=== PATIENT | male | born 1975 | race Caucasian/White ===

== ENCOUNTER 2021-04-03 08:28 | Observation (INO) | payer MEDICAID, SELFPAY ==
[2021-04-03] VITALS (31 sets, daily range): BP systolic 145–230; BP diastolic 84–122; PULSE 61–89; RESP 12–26; TEMP 36.6–37.1; O2SAT 93–98; BMI 23.6
--- NOTE | 2021-04-03 | IR_ITS ---
APPROVED REPORT Patient Location: Inpatient Charge Account Identification Clerk: JESSIE Sanchez RT (R) PROCEDURES Selective coronary angiogram INDICATION Preoperative evaluation, Elevated troponin Informed consent was obtained prior to the procedure. COMPLICATIONS NONE Estimated Blood Loss: LESS THAN 10 ML TECHNIQUE One percent lidocaine used to anesthetize the right anterior aspect of the wrist. The right radial artery was accessed via the Seldinger technique. A 6 Armenian sheath was placed in the right radial artery. 2.5 mg of verapamil, 800 mcg of nitroglycerin, 1mg Lidocaine and 5000 U Heparin were given through the arterial sheath. A ClickN KIDSpa catheter was used to perform selective angiography. At the end of procedure the apparatus was removed the sheath was removed and hemostasis was achieved using TR banding patient was transferred to the postop holding in stable condition ANGIOGRAPHIC RESULTS The left main artery Normal The left anterior descending artery Normal The circumflex artery Dominant normal The right coronary artery Nondominant normal The DIOR ventriculogram reveals Not performed The left ventricular end-diastolic pressure Not measured IMPRESSION Normal coronary arteries PLAN 1. Patient is a low and acceptable risk from a cardiac standpoint to proceed with elective/urgent cholecystectomy 2. Patient would likely benefit from beta-blockers and cessation from recreational drugs 3. Risk factor modification Electronically signed by : Rex Crowell MD 04/03/2021 15:45:18
--- NOTE | 2021-04-03 08:25 | ECG_ITS ---
APPROVED REPORT Exam: Resting ECG HR:60 bpm ECG Measurements Heart Rate 60 AXES FL 143 P 64 QRSd 84 QRS 62 QT 424 T 68 QTc 425 Conclusion SINUS RHYTHM MINIMAL VOLTAGE CRITERIA FOR LVH, CONSIDER NORMAL VARIANT [MEETS CRITERIA IN ONE OF: R(aVL), S(V1), R(V5), R(V5/V6)+S(V1)] MODERATE ST DEPRESSION [0.05+ mV ST DEPRESSION] ABNORMAL ECG UNCONFIRMED REPORT Electronically signed by : Bennett Ackerman MD 04/04/2021 19:00:24
--- NOTE | 2021-04-03 08:34 | CT_ITS ---
FINAL REPORT CLINICAL HISTORY: erwin, vomit FINDINGS: Axial images of the head were obtained without contrast. Coronal reformatted images were also obtained.This study was performed with techniques to keep radiation doses as low as reasonably achievable (ALARA). Individualized dose reduction techniques using automated exposure control or adjustment of mA and/or kV according to the patient''s size were employed. There is no evidence of intracranial hemorrhage or mass. The ventricular size is within normal limits. There is no evidence of shift of the midline structures. There is no mass or mass effect. No abnormal extra axial fluid collection is identified. There is opacification of the left maxillary sinus. There is mucosal thickening of other sinuses. No skull abnormality is seen on the bone window images. IMPRESSION: No acute intracranial abnormality. Chronic sinusitis. Reviewed, Interpreted and Dictated by Ziyad Segundo III, MD Transcribed by DIONNA Gil Authenticated by Ziyad Segundo III, MD on 04/03/2021 09:42:[address] [facility]
[2021-04-03 08:48] LABS: Basophils # 0.1 K/mm3 (0-0.2); Basophils % 0.8 % (0.1-2.0); Eosinophils # 0.1 K/mm3 (0.0-0.4); Eosinophils % 0.4 % (0.1-12.0); Hematocrit 44.2 % (42.0-52.0); Hemoglobin 14.4 g/dL (14.1-18.0); Lymphocytes # 0.9 K/mm3 (0.7-4.5); Lymphocytes % 5.8 % (10-50); Mean Corpuscular HGB Conc 32.6 g/dL (31.8-35.4); Mean Corpuscular Hemoglobin 29.8 pg (27.0-31.2); Mean Corpuscular Volume 91.6 fl (80-94); Mean Platelet Volume 9.5 fl (7.4-10.4); Monocytes # 0.9 K/mm3 (0.1-1.0); Monocytes % 5.9 % (1.7-9.3); Neutrophils # 13.2 K/mm3 (1.8-7.8); Neutrophils % 87.1 % (37.0-80.0); Platelet Count 393 K/mm3 (142-424); Red Blood Count 4.83 M/mm3 (4.60-6.20); Red Cell Distribution Width 13.5 % (11.5-17.5); White Blood Count 15.2 K/mm3 (4.8-10.8)
--- NOTE | 2021-04-03 08:48 | HMH.EDGENADL ---
ED Disposition Clinical Impression: Chest pain Qualifiers: Chest pain type: unspecified Qualified Code(s): R07.9 - Chest pain, unspecified Gallstone Qualifiers: Cholecystitis presence: without cholecystitis Biliary obstruction: without biliary obstruction Qualified Code(s): K80.20 - Calculus of gallbladder without cholecystitis without obstruction Disposition: Admitted as Observation Condition on Discharge: Good - Critical Care Critical Care Time: No Attestation: On , the high probability of a clinically significant, sudden or life threatening deterioration of the following system(s) required my full and direct attention, intervention and personal management. The time I documented below is in addition to time spent performing reported procedures but includes the following listed in this critical care notation. Medical Decision Making - Medical Records Medical records reviewed: Yes: I reviewed the patient's medical records. - Jorge Inquiry Pt receiving controlled substance: No Vital Signs: 04/03/21 08:28 04/03/21 09:17 04/03/21 09:31 Temperature 98.3 F Temperature Source Oral Pulse Rate 70 64 Pulse Rate [Radial] 80 Respiratory Rate 26 H 18 18 Blood Pressure 179/85 H 207/88 H Blood Pressure [Right Arm] 204/118 H Blood Pressure Mean 116 127 Blood Pressure Mean [Right Arm] 146 Blood Pressure Position [Right Arm] Sitting 02 Sat by Pulse Oximetry 94 L 96 96 Oxygen Delivery Method Room Air 04/03/21 09:41 04/03/21 10:00 04/03/21 10:30 Temperature Temperature Source Pulse Rate 62 68 68 Pulse Rate [Radial] Respiratory Rate 18 18 18 Blood Pressure 175/89 H 192/84 H 192/103 H Blood Pressure [Right Arm] Blood Pressure Mean 117 120 132 Blood Pressure Mean [Right Arm] Blood Pressure Position [Right Arm] 02 Sat by Pulse Oximetry 96 96 96 Oxygen Delivery Method 04/03/21 10:53 04/03/21 11:01 04/03/21 11:47 Temperature Temperature Source Pulse Rate 68 68 Pulse Rate [Radial] Respiratory Rate 18 18 Blood Pressure 160/108 H 178/97 H 192/98 H Blood Pressure [Right Arm] Blood Pressure Mean 136 124 Blood Pressure Mean [Right Arm] Blood Pressure Position [Right Arm] 02 Sat by Pulse Oximetry 96 95 Oxygen Delivery Method - Lab Data Lab Results 04/03/21 08:28: WBC 15.2 H, RBC 4.83, Hgb 14.4, Hct 44.2, MCV 91.6, MCH 29.8, MCHC 32.6, RDW 13.5, Plt Count 393, MPV 9.5, Neut % (Auto) 87.1 H, Lymph % (Auto) 5.8 L, [place] % (Auto) 5.9, Eos % (Auto) 0.4, Baso % (Auto) 0.8, Neut # (Auto) 13.2 H, Lymph # (Auto) 0.9, [place] # (Auto) 0.9, Eos # (Auto) 0.1, Baso # (Auto) 0.1, Total Counted 100, Neutrophils % (Manual) 88 H, Lymphocytes % (Manual) 10, Monocytes % (Manual) 2, Platelet Estimate Normal, RBC Morphology Normal 04/03/21 08:28: Sodium 137, Potassium 4.0, Chloride 98, Carbon Dioxide 27, Anion Gap 16.0 H, BUN 10, Creatinine 0.60 L, Estimated Creat Clear 161, Estimated GFR 144, Est GFR ( Amer) 175, Glucose 152 H, Calcium 9.4, Total Bilirubin 1.0, AST 45, ALT 48, Alkaline Phosphatase 119, Troponin I 0.06 H, Total Protein 8.5 H, Albumin 4.8, Globulin 3.7 H, Albumin/Globulin Ratio 1.3, Lipase 32 04/03/21 09:25: SARS-CoV-2 (PCR) Not detected, Influenza A Untype (PCR) Not detected, Influenza Type B (PCR) Not detected 04/03/21 10:27: Troponin I 0.09 H 04/03/21 10:42: Urine Color Yellow, Urine Appearance Clear, Urine pH 8.0, Ur Specific [place] 1.015, Urine Protein 1+, Urine Glucose (UA) Negative, Urine Ketones Trace, Urine Blood Negative, Urine Nitrate Negative, Urine Bilirubin Negative, Urine Urobilinogen 0.2, Ur Leukocyte Esterase Negative, Urine RBC None, Urine WBC Occasional, Ur Squamous Epith Cells 3-5, Urine Bacteria None Result diagrams: 04/03/21 08:28 04/03/21 08:28 Orders (Tests/Meds): ED MEDICATIONS Discontinued Medications Generic Name Dose Route Start Last Admin Trade Name Freq PRN Reason Stop Dose Admin Acetaminophen 1,000 mg 04/03/21 0
--- NOTE | 2021-04-03 08:52 | XR_ITS ---
FINAL REPORT CLINICAL HISTORY: chest pain FINDINGS: A single portable view of the chest was obtained. The heart size and pulmonary vascularity are within normal limits. The mediastinum is within normal limits. No acute pulmonary abnormality is identified. The bony thorax is intact. IMPRESSION: No active cardiopulmonary disease. Reviewed, Interpreted and Dictated by Ziyad Segundo III, MD Transcribed by DIONNA Gil Authenticated by Ziyad Segundo III, MD on 04/03/2021 09:42:16 AM [facility]
[2021-04-03 08:54] LABS: Chloride 98 mmol/L (98-107); Sodium 137 mmol/L (136-145)
[2021-04-03 08:56] LABS: Alanine Aminotransferase 48 U/L (12-78); Aspartate Amino Transferase 45 U/L (17-59); Blood Urea Nitrogen 10 mg/dl (9-20); Creatinine Clearance Estimated 161 mL/min (50-200); Estimated Glomerular Filt Rate 144 ml/min (>60); GFR (African American) 175 ML/MIN (>60)
[2021-04-03 08:57] LABS: Albumin Level 4.8 g/dl (3.5-5.0); Albumin/Globulin Ratio 1.3 (1.1-1.8); Alkaline Phosphatase 119 U/L (38-126); Calcium 9.4 mg/dl (8.4-10.2); Carbon Dioxide 27 mmol/L (22.0-30.0); Globulin 3.7 g/dL (1.3-3.2); Glucose 152 mg/dl (74-100); Lipase 32 U/L (23-300); Total Protein,Serum 8.5 g/dl (6.3-8.2)
[2021-04-03 09:02] LABS: MANUAL DIFFERENTIAL MANUAL DIFFERENTIAL (MANUAL DIFF)
[2021-04-03 09:08] LABS: Troponin I 0.06 ng/ml (0.00-0.034)
[2021-04-03 09:27] LABS: Coronavirus 19, PCR Not Detected (NotDetected); Influenza A, PCR Not Detected (NotDetected); Influenza B, PCR Not Detected (NotDetected)
--- NOTE | 2021-04-03 09:32 | PC.NURSE ---
DR SHANKAR WANTS 2 HR [facility] CALLED
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
[2021-04-03 09:59] LABS: Lymphocytes % 10 % (10-50); Monocytes % 2 % (2-9); Neutrophils % 88 % (42-76); Platelet Estimate Normal; RBC Morphology Normal; Total Cells Counted 100
[2021-04-03 10:48] LABS: Microscopic, Urine URINE MICROSCOPIC (MICROSCOPIC)
[2021-04-03 10:59] LABS: Appearance,Urine CLEAR (Clear); Bilirubin,Urine Negative (Negative); Blood, Urine Negative (Negative); Color,Urine YELLOW (Yellow); Glucose,Urine (UA) Negative (Negative); Ketones,Urine TRACE (Negative); Leukocyte Esterase,Urine Negative (Negative); Nitrate,Urine Negative (Negative); Protein,Urine 1+ (Negative); Specific Gravity, Urine 1.015 (1.005-1.030); Urobilinogen,Urine 0.2 EU/dl (0.2)
--- NOTE | 2021-04-03 11:07 | US_ITS ---
FINAL REPORT CLINICAL HISTORY: abd pain, n/v, abn ct FINDINGS: Sonographic images of the right upper quadrant were obtained. The pancreas is partially obscured. The liver has increased echogenicity consistent with fatty infiltration. The gallbladder is distended with mild sludge. There is no evidence of biliary ductal dilatation.The common duct measures 2 mm. Limited images of the right kidney are unremarkable. IMPRESSION: Distended gallbladder with mild sludge. Fatty infiltrated liver. Reviewed, Interpreted and Dictated by Ziyad Segundo III, MD Transcribed by Elana Craven Authenticated by Ziyad Segundo III, MD on 04/03/2021 12:52:50 PM [facility]
[2021-04-03 11:19] LABS: WBC,Urine Occasional #/hpf (0-3)
[2021-04-03 11:26] LABS: Troponin I 0.09 ng/ml (0.00-0.034)
--- NOTE | 2021-04-03 11:41 | PC.NURSE ---
cardiology called, will call back
--- NOTE | 2021-04-03 11:49 | CA_ITS ---
APPROVED REPORT EXAM: Comprehensive 2D, Doppler, and color-flow Echocardiogram Electrician Ship: Citlalli Lugo, KEVIN, RVS Ht: 5 ft 10 in Wt: 165lbs BSA: 1.92 BP: 000/00 mmHg Indications: Abnormal ECG, Chest Pain, elevated troponin, Smoker 2D Dimensions Aortic Root 3.19 cm LA Volume 49.20 mL Left Atrium 2.76 cm LA Volume Index 25.60 mL/m2 (M/F) 16-34 LVOT 2.20 cm (M/F) 1.5-2.5 M-Mode Dimensions RVDd 2.21 cm (0.9-2.6) LA Diam 3.16 cm (1.9-4.0) LVDd 5.43 cm (3.5-5.7) Ao Diam 3.62 cm (2.0-3.7) LVDs 3.18 cm (3.5-5.7) IVSd 1.04 cm (0.6-1.1) PWd 0.93 cm (0.6-1.1) EF (Teich) 71.80% EPSs 0.36 cm FS 41.40% EDV (Teich) 143.10 mL TAPSE 2.29 (<1.7) ESV (Teich) 40.30 mL LV Diastology E Decel Time 303.00 (160-240 msec) E/A Ratio 1.07 MED E' 9.20 (< 7 cm/sec) MED A' 13.70 cm/s E'/MED E' Ratio 8.16 (>14) LAT E' 14.00 (<10 cm/sec) LAT A' 2.60 cm/s E/LAT E' Ratio 5.36 (>14) Aortic Valve LVOT Max 116.00 (70-110 cm/s) LVOT VTI 23.99 cm AoV Peak Kiel. 152.00 (50-130 cm/s) AO Peak GR. 9.20 mmHg AO Mean GR. 5.00 (<5 mmHg) AO VTI 34.44 (18-25 cm) GENE (VTI) 2.65 (2.5-4.5 cm2) Mitral Valve MV A Velocity 70.00 (40-130 cm/s) E/A Ratio 1.07 MV Decel. Time 303.00 (160-240 ms) Pulmonary Valve PV Peak Velocity 110.00 (50-150 cm/s) Tricuspid Valve TR P. Velocity 145.00 cm/s RAP Estimate 10.00 mmHg RVSP 18.40 mmHg Left Ventricle Left atrium normal size, left ventricle is normal size, there is no concentric left ventricular hypertrophy, visually estimated ejection fraction 55% with no regional wall motion abnormality, diastolic parameters are within normal range. Right Ventricle Right atrium and right ventricle are normal size and contractility. Aortic Valve Aortic valve is grossly normal, there is no aortic stenosis or aortic insufficiency. Mitral Valve Mitral valve is grossly normal, there is trace mitral regurgitation. Tricuspid Valve Tricuspid grossly normal, there is trace tricuspid regurgitation, tricuspid regurgitation jet velocity is inadequate for calculation of the right ventricular systolic pressure. Pulmonic Valve Pulmonic valve is poorly visualized. Great Vessels Aortic root is normal size. Inferior vena cava is normal size with normal inspiratory collapse. Pericardium No significant pericardial effusion noted. Conclusion 1. Normal left ventricular size, preserved left ventricular systolic function, visually estimated ejection fraction 55% with no regional wall motion abnormality, diastolic parameters are within normal range. 2. Trace mitral and tricuspid regurgitation. 3. No significant pericardial effusion noted. 4. Inferior vena cava is normal size with normal inspiratory collapse. Electronically signed by : Surya Palma MD 04/03/2021 21:07:54
--- NOTE | 2021-04-03 11:53 | PC.NURSE ---
[facility] cardi[facility] at bedside
--- NOTE | 2021-04-03 12:16 | PC.NURSE ---
DR. PEÑA AND ANETA PAGAN AT BEDSIDE.
--- NOTE | 2021-04-03 12:17 | PC.NURSE ---
DR. PEÑA ADVISES PT WILL BE GOING TO THE [facility]. MARY KAY GETTING READY TO PREP PATIENT AT THIS TIME. ANETA PAGAN ADVISES NO MEDICATIONS/ NO OTHER ORDERS AT THIS TIME.
--- NOTE | 2021-04-03 12:52 | HMH.CNCARD ---
History of Present Illness Consult date: 04/03/21 Requesting physician: Brady Milian Consult reason: chest pain Chief complaint: N, Vomiting, Abdominal pain, Chest pain Additional Medical History:: 1. Hypertension 2. Tobacco use, 1/2 to 1 pack/day for 20 years 3. Nausea, vomiting, abdominal pain, 04/03/[address] scan 04/03/2021 B. No evidence of PE or aortic dissection, CTA of the chest, 04/03/2021. Possible edema versus infiltrate. 4. Elevated troponins with abnormal EKG, April 03, 2021 History of present illness: 45-year-old white male who developed nausea, vomiting and abdominal pain after eating [place] yesterday about 5 PM. Patient continues to have some vomiting since then. He was seen in the emergency department for the symptoms and given a combination of medications for nausea vomiting and chest pain which included nitroglycerin. His symptoms have improved since then. His blood pressure was noted to be elevated on admission and after being given labetalol has improved to 145/77 mmHg. Patient's chest pain has resolved but his lab work included troponins which are elevated at 0.06 and 0.09 with abnormal EKG showing ST segment depression in the inferolateral leads. No old EKG for comparison. He is found to have gallstones on work-up in the ER. In light of his complaint of chest pain, abnormal EKG and elevated troponins we recommend proceeding with cardiac catheterization later today. We will hold on antiplatelet therapy in case surgery is needed for gallstones. Preliminary echocardiogram today shows preserved ejection fraction. [facility] History *Have you ever received a pneumonia vaccine?: No *Have you received a flu vaccine this season?: No - *Social History Smoking Status: Current every day smoker Alcohol Intake: former *Occupational Status:: employed *Travel in the last 8 weeks: Inside the [place] Family Hx:: Non-contributory Meds Home Medications Medication Instructions Recorded Confirmed Type No Known Home Medications 04/03/21 04/03/21 History Allergies Allergy/AdvReac Type Severity Reaction Status Date / Time meperidine [From Demerol] Allergy Verified 04/03/21 08:33 Exam Vital signs and Labs for Last 24 Hours: Temp Pulse Resp BP Pulse Ox 98.3 F 68 18 192/98 H 95 04/03/21 08:28 04/03/21 11:01 04/03/21 11:01 04/03/21 11:47 04/03/21 11:01 Laboratory Results - last 24 hr 04/03/21 08:28: WBC 15.2 H, RBC 4.83, Hgb 14.4, Hct 44.2, MCV 91.6, MCH 29.8, MCHC 32.6, RDW 13.5, Plt Count 393, MPV 9.5, Neut % (Auto) 87.1 H, Lymph % (Auto) 5.8 L, [place] % (Auto) 5.9, Eos % (Auto) 0.4, Baso % (Auto) 0.8, Neut # (Auto) 13.2 H, Lymph # (Auto) 0.9, [place] # (Auto) 0.9, Eos # (Auto) 0.1, Baso # (Auto) 0.1, Total Counted 100, Neutrophils % (Manual) 88 H, Lymphocytes % (Manual) 10, Monocytes % (Manual) 2, Platelet Estimate Normal, RBC Morphology Normal 04/03/21 08:28: Sodium 137, Potassium 4.0, Chloride 98, Carbon Dioxide 27, Anion Gap 16.0 H, BUN 10, Creatinine 0.60 L, Estimated Creat Clear 161, Estimated GFR 144, Est GFR ( Amer) 175, Glucose 152 H, Calcium 9.4, Total Bilirubin 1.0, AST 45, ALT 48, Alkaline Phosphatase 119, Troponin I 0.06 H, Total Protein 8.5 H, Albumin 4.8, Globulin 3.7 H, Albumin/Globulin Ratio 1.3, Lipase 32 04/03/21 09:25: SARS-CoV-2 (PCR) Not detected, Influenza A Untype (PCR) Not detected, Influenza Type B (PCR) Not detected 04/03/21 10:27: Troponin I 0.09 H 04/03/21 10:42: Urine Color Yellow, Urine Appearance Clear, Urine pH 8.0, Ur Specific [place] 1.015, Urine Protein 1+, Urine Glucose (UA) Negative, Urine Ketones Trace, Urine Blood Negative, Urine Nitrate Negative, Urine Bilirubin Negative, Urine Urobilinogen 0.2, Ur Leukocyte Esterase Negative, Urine RBC None, Urine WBC Occasional, Ur Squamous Epith Cells 3-5, Urine Bacteria None I & O for Last 24 hours: Intake & Output 04/01/21 04/02/21 04/03/21 04/04/21 11:59 11:59 11:59 11:59 Krystian
--- NOTE | 2021-04-03 13:00 | PC.NURSE ---
pt states he uses heroin daily, snorts, states he is afraid he is going to go thru withdrawal and worried about it. last used yesterday. informed md states there is nothing you can give for opiate withdrawal.
--- NOTE | 2021-04-03 13:35 | PC.NURSE ---
report called to floor
[2021-04-03 13:49] LABS: Troponin I 0.09 ng/ml (0.00-0.034)
--- NOTE | 2021-04-03 15:03 | HMH.HP ---
*Admission Date: 04/03/21 <Eneida Hess - 04/03/21 15:13> *Chief complaint: vomiting, nausea, abdominal pain <Eneida Hess - 04/03/21 15:13> *History of present illness: 45-year-old white male who developed nausea, vomiting and abdominal pain after eating cheese yesterday about 5 PM. Patient continues to have some vomiting since then. He was seen in the emergency department for the symptoms and given a combination of medications for nausea vomiting and chest pain which included nitroglycerin. His symptoms have improved since then. His blood pressure was noted to be elevated on admission and after being given labetalol has improved to 145/77 mmHg. Patient's chest pain has resolved but his lab work included troponins which are elevated at 0.06 and 0.09 with abnormal EKG showing ST segment depression in the inferolateral leads. No old EKG for comparison. He is found to have gallstones on work-up in the ER. In light of his complaint of chest pain, abnormal EKG and elevated troponins we recommend proceeding with cardiac catheterization later today. We will hold on antiplatelet therapy in case surgery is needed for gallstones. Preliminary echocardiogram today shows preserved ejection fraction. (above as per Paluo Miranda) Further as to above, the patient is a daily heroin user. He states he thought he was having dose withdrawal yesterday when he began vomiting multiple times. He began having pain in the epigastric area that was radiating up into his chest and around his back. He used heroin this morning but it did not help his symptoms. He continued to vomit and have horrible abdominal pain. His chest x-ray showed nothing acute. His chest CTA showed no evidence of PE. He did have mild pulmonary groundglass opacities favoring edema over pneumonia and a moderately distended gallbladder. His gallbladder ultrasound showed a mildly distended gallbladder with sludge and fatty infiltration. He was admitted and given Zofran but states he is still nauseated. He is getting ready to be taken down for a heart cath. His is requesting something for heroin withdrawal. <Eneida Hess - 04/03/21 15:13> [facility] History I have reviewed the patient's past medical history: Yes <Renato Hessa - 04/03/21 15:13> Medical History: Denies:: Diabetes Mellitus Type 1, Diabetes Mellitus Type 2, Internal Pacemaker <DeshawnEneida 04/03/21 15:13> *Have you ever received a pneumonia vaccine?: No <Eneida Hess 04/03/21 15:13> *Have you received a flu vaccine this season?: No <DeshawnEneida 04/03/21 15:13> Other Surgeries: No: Pacemaker <DeshawnEneida 04/03/21 15:13> Amputation: No <DeshawnEneida 04/03/21 15:13> Fractures: No <JamesdestineyEneida 04/03/21 15:13> - *Social History Smoking Status: Current every day smoker <DeshawnEenida 04/03/21 15:13> Tobacco Type: cigarettes <DeshawnEneida 04/03/21 15:13> # Packs/Day (cigarettes): 1 <DeshawnEneida 04/03/21 15:13> Alcohol Intake: never <Renato Hessa 04/03/21 15:13> Substance Use Type: heroin <DeshawnEneida - 04/03/21 15:13> Last Used Substance: hours (ago) <JamesdestineyEneida 04/03/21 15:13> *Occupational Status:: other <DeshawnEneida 04/03/21 15:13> Household Members: spouse <JamesdestineyEneida 04/03/21 15:13> *Travel in the last 8 weeks: None <DeshawnEneida 04/03/21 15:13> Family Hx:: Coronary Artery Disease, Heart Attack, Hypertension <DeshawnEneida 04/03/21 15:13> Review of Systems - Constitutional Reports body ache(s), Reports chills, Reports weakness, Denies fever(s) <Renato Hessa 04/03/21 15:13> - Eyes Denies blurry vision, Denies double vision <DeshawnEneida 04/03/21 15:13> - ENT Denies nasal congestion, Denies sore throat <Renato Hessa 04/03/21 15:13> - *Cardiovascular Reports chest pain, Reports shortness of breath <Renato Hessa 04/03/21 15:13> - *Respiratory Reports cough, Reports shortness of breath <Eneida Hess - 04/03/21 15:13> - *Gas
[2021-04-04] VITALS (26 sets, daily range): BP systolic 160–216; BP diastolic 92–119; PULSE 56–78; RESP 14–20; TEMP 36.5–37.2; O2SAT 93–99
--- NOTE | 2021-04-04 05:58 | PC.NURSE ---
pt has continued to be hypertensive this shift, has complained of abdominal pain t/o shift, has also complained of nausea and has vomited some this shift, PRN meds given, right radial cath site with dressing in place, soft to touch, HR 59-71, remains on room air with O2 sats 93-97%
[2021-04-04 06:56] LABS: Basophils % 0.2 % (0.1-2.0); Eosinophils % 0.2 % (0.1-12.0); Hematocrit 45.6 % (42.0-52.0); Hemoglobin 14.7 g/dL (14.1-18.0); Lymphocytes # 1.3 K/mm3 (0.7-4.5); Lymphocytes % 6.9 % (10-50); Mean Corpuscular HGB Conc 32.2 g/dL (31.8-35.4); Mean Corpuscular Hemoglobin 29.6 pg (27.0-31.2); Mean Corpuscular Volume 92.1 fl (80-94); Mean Platelet Volume 9.3 fl (7.4-10.4); Monocytes # 1.4 K/mm3 (0.1-1.0); Monocytes % 7.4 % (1.7-9.3); Neutrophils # 16.3 K/mm3 (1.8-7.8); Neutrophils % 85.4 % (37.0-80.0); Platelet Count 390 K/mm3 (142-424); Red Blood Count 4.96 M/mm3 (4.60-6.20); Red Cell Distribution Width 13.5 % (11.5-17.5); White Blood Count 19.1 K/mm3 (4.8-10.8)
[2021-04-04 06:58] LABS: Chloride 97 mmol/L (98-107); Sodium 131 mmol/L (136-145)
[2021-04-04 06:59] LABS: Potassium 3.6 mmoL/L (3.5-5.1)
[2021-04-04 07:01] LABS: Alanine Aminotransferase 36 U/L (12-78); Albumin/Globulin Ratio 1.3 (1.1-1.8); Alkaline Phosphatase 119 U/L (38-126); Anion Gap 12.6 mEq/L (5-15); Aspartate Amino Transferase 37 U/L (17-59); Bilirubin,Total 1.1 mg/dl (0.2-1.3); Blood Urea Nitrogen 10 mg/dl (9-20); Carbon Dioxide 25 mmol/L (22.0-30.0); Creatinine Clearance Estimated 161 mL/min (50-200); Estimated Glomerular Filt Rate 144 ml/min (>60); GFR (African American) 175 ML/MIN (>60)
[2021-04-04 07:02] LABS: Calcium 8.8 mg/dl (8.4-10.2); Glucose 153 mg/dl (74-100)
[2021-04-04 07:07] LABS: MANUAL DIFFERENTIAL MANUAL DIFFERENTIAL (MANUAL DIFF)
--- NOTE | 2021-04-04 07:21 | HMH.GSCON ---
*Admission Date: 04/03/21 *Reason for consult:: Distended gallbladder and biliary sludge *History of present illness: This is a 45-year-old gentleman seen in consultation for service Dr. Milian for evaluation regarding upper abdominal pain, distended gallbladder, and biliary sludge. No fevers. No jaundice. Significant nausea. Elevated troponin is noted on this admission. He is status post catheterization with normal coronaries noted. He has been cleared to undergo surgical intervention per the cardiology service. Review of Systems - Constitutional Denies chills - *Gastrointestinal Reports abdominal pain, Reports nausea - *Neurologic Reports headache(s), Reports weakness [facility] History Medical History: Denies:: Diabetes Mellitus Type 1, Diabetes Mellitus Type 2, Internal Pacemaker *Have you ever received a pneumonia vaccine?: No *Have you received a flu vaccine this season?: No Other Surgeries: No: Pacemaker Amputation: No Fractures: No - *Social History Smoking Status: Current every day smoker Tobacco Type: cigarettes # Packs/Day (cigarettes): 1 Alcohol Intake: never Substance Use Type: heroin Last Used Substance: hours (ago) *Occupational Status:: other Household Members: spouse *Travel in the last 8 weeks: None Family Hx:: Coronary Artery Disease, Heart Attack, Hypertension Meds Home Medications Medication Instructions Recorded Confirmed Type No Known Home Medications 04/03/21 04/03/21 History Allergies Allergy/AdvReac Type Severity Reaction Status Date / Time buprenorphine [From Suboxone] Allergy Verified 04/03/21 14:33 meperidine [From Demerol] Allergy Verified 04/03/21 08:33 naloxone [From Suboxone] Allergy Verified 04/03/21 14:33 Exam Vital signs and Labs for Last 24 Hours: Temp Pulse Resp BP Pulse Ox 97.7 F 60 16 193/99 H 93 L 04/04/21 04:00 04/04/21 06:00 04/04/21 04:00 04/04/21 06:00 04/04/21 04:00 Laboratory Results - last 24 hr 04/03/21 08:28: WBC 15.2 H, RBC 4.83, Hgb 14.4, Hct 44.2, MCV 91.6, MCH 29.8, MCHC 32.6, RDW 13.5, Plt Count 393, MPV 9.5, Neut % (Auto) 87.1 H, Lymph % (Auto) 5.8 L, [place] % (Auto) 5.9, Eos % (Auto) 0.4, Baso % (Auto) 0.8, Neut # (Auto) 13.2 H, Lymph # (Auto) 0.9, [place] # (Auto) 0.9, Eos # (Auto) 0.1, Baso # (Auto) 0.1, Total Counted 100, Neutrophils % (Manual) 88 H, Lymphocytes % (Manual) 10, Monocytes % (Manual) 2, Platelet Estimate Normal, RBC Morphology Normal 04/03/21 08:28: Sodium 137, Potassium 4.0, Chloride 98, Carbon Dioxide 27, Anion Gap 16.0 H, BUN 10, Creatinine 0.60 L, Estimated Creat Clear 161, Estimated GFR 144, Est GFR ( Amer) 175, Glucose 152 H, Calcium 9.4, Total Bilirubin 1.0, AST 45, ALT 48, Alkaline Phosphatase 119, Troponin I 0.06 H, Total Protein 8.5 H, Albumin 4.8, Globulin 3.7 H, Albumin/Globulin Ratio 1.3, Lipase 32 04/03/21 09:25: SARS-CoV-2 (PCR) Not detected, Influenza A Untype (PCR) Not detected, Influenza Type B (PCR) Not detected 04/03/21 10:27: Troponin I 0.09 H 04/03/21 10:42: Urine Color Yellow, Urine Appearance Clear, Urine pH 8.0, Ur Specific [place] 1.015, Urine Protein 1+, Urine Glucose (UA) Negative, Urine Ketones Trace, Urine Blood Negative, Urine Nitrate Negative, Urine Bilirubin Negative, Urine Urobilinogen 0.2, Ur Leukocyte Esterase Negative, Urine RBC None, Urine WBC Occasional, Ur Squamous Epith Cells 3-5, Urine Bacteria None 04/03/21 12:51: Troponin I 0.09 H 04/04/21 06:29: WBC 19.1 H D, RBC 4.96, Hgb 14.7, Hct 45.6, MCV 92.1, MCH 29.6, MCHC 32.2, RDW 13.5, Plt Count 390, MPV 9.3, Neut % (Auto) 85.4 H, Lymph % (Auto) 6.9 L, [place] % (Auto) 7.4, Eos % (Auto) 0.2, Baso % (Auto) 0.2, Neut # (Auto) 16.3 H, Lymph # (Auto) 1.3, [place] # (Auto) 1.4 H, Eos # (Auto) 0.0, Baso # (Auto) 0.0 04/04/21 06:29: Sodium 131 L, Potassium 3.6, Chloride 97 L, Carbon Dioxide 25, Anion Gap 12.6, BUN 10, Creatinine 0.60 L, Estimated Creat Clear 161, Estimated GFR 144, Est GFR ( Amer) 175, Glucose 153 H, Calcium 8.8, Total Bili
--- NOTE | 2021-04-04 07:29 | HMH.PHAVTE ---
[facility] Pharmacy VTE Monitoring - Patient Demographics Admission date: 04/03/21 Report Date: 04/04/21 Time: 07:29 Allergies/Adverse Reactions: Patient Allergies buprenorphine [From Suboxone] Allergy (Verified 04/03/21 14:33) meperidine [From Demerol] Allergy (Verified 04/03/21 08:33) naloxone [From Suboxone] Allergy (Verified 04/03/21 14:33) Height: 1.78 m Weight: 74.843 kg Patient Problems: Current Active Problems Chest pain (Acute) Gallstone (Acute) Smoker (Acute) Elevated blood pressure reading (Acute) Elevated troponin (Acute) Abnormal EKG (Acute) Drug abuse and dependence (Acute) Heroin use (Acute) Abdominal pain (Acute) Vomiting (Acute) Biliary sludge (Acute) Abnormal gallbladder ultrasound (Acute) - VTE Risk Labs: VTE Related Lab Results Hgb 14.7 g/dL (14.1-18.0) 04/04/21 06:29 Hct 45.6 % (42.0-52.0) 04/04/21 06:29 Plt Count 390 K/mm3 (142-424) 04/04/21 06:29 BUN 10 mg/dl (9-20) 04/04/21 06:29 Creatinine 0.60 mg/dl (0.66-1.25) L 04/04/21 06:29 Estimated Creat Clear 161 mL/min (50-200) 04/04/21 06:29 - Prophylaxis VTE Prophylaxis Ordered?: Yes Types of VTE Prophylaxis: TEDS Knee High Location of Applied Device: Bilateral Lower Extremeties
[2021-04-04 08:18] LABS: Lymphocytes % 9 % (10-50); Monocytes % 4 % (2-9); Neutrophils % 87 % (42-76); Platelet Estimate Normal; RBC Morphology Normal; Total Cells Counted 100
--- NOTE | 2021-04-04 08:31 | HMH.PNCARD ---
Subjective Date: 04/04/21 Time: 08:32 Principal diagnosis: Abdominal pain Interval history: 45-year-old white male lying in bed in no acute distress. He relates the plan for gallbladder removal today. Blood pressure still remains elevated overnight. Exam Vital signs and Labs for Last 24 Hours: Temp Pulse Resp BP Pulse Ox 97.7 F 60 16 193/99 H 93 L 04/04/21 04:00 04/04/21 06:00 04/04/21 04:00 04/04/21 06:00 04/04/21 04:00 Laboratory Results - last 24 hr 04/03/21 08:28: WBC 15.2 H, RBC 4.83, Hgb 14.4, Hct 44.2, MCV 91.6, MCH 29.8, MCHC 32.6, RDW 13.5, Plt Count 393, MPV 9.5, Neut % (Auto) 87.1 H, Lymph % (Auto) 5.8 L, [place] % (Auto) 5.9, Eos % (Auto) 0.4, Baso % (Auto) 0.8, Neut # (Auto) 13.2 H, Lymph # (Auto) 0.9, [place] # (Auto) 0.9, Eos # (Auto) 0.1, Baso # (Auto) 0.1, Total Counted 100, Neutrophils % (Manual) 88 H, Lymphocytes % (Manual) 10, Monocytes % (Manual) 2, Platelet Estimate Normal, RBC Morphology Normal 04/03/21 08:28: Sodium 137, Potassium 4.0, Chloride 98, Carbon Dioxide 27, Anion Gap 16.0 H, BUN 10, Creatinine 0.60 L, Estimated Creat Clear 161, Estimated GFR 144, Est GFR ( Amer) 175, Glucose 152 H, Calcium 9.4, Total Bilirubin 1.0, AST 45, ALT 48, Alkaline Phosphatase 119, Troponin I 0.06 H, Total Protein 8.5 H, Albumin 4.8, Globulin 3.7 H, Albumin/Globulin Ratio 1.3, Lipase 32 04/03/21 09:25: SARS-CoV-2 (PCR) Not detected, Influenza A Untype (PCR) Not detected, Influenza Type B (PCR) Not detected 04/03/21 10:27: Troponin I 0.09 H 04/03/21 10:42: Urine Color Yellow, Urine Appearance Clear, Urine pH 8.0, Ur Specific [place] 1.015, Urine Protein 1+, Urine Glucose (UA) Negative, Urine Ketones Trace, Urine Blood Negative, Urine Nitrate Negative, Urine Bilirubin Negative, Urine Urobilinogen 0.2, Ur Leukocyte Esterase Negative, Urine RBC None, Urine WBC Occasional, Ur Squamous Epith Cells 3-5, Urine Bacteria None 04/03/21 12:51: Troponin I 0.09 H 04/04/21 06:29: WBC 19.1 H D, RBC 4.96, Hgb 14.7, Hct 45.6, MCV 92.1, MCH 29.6, MCHC 32.2, RDW 13.5, Plt Count 390, MPV 9.3, Neut % (Auto) 85.4 H, Lymph % (Auto) 6.9 L, [place] % (Auto) 7.4, Eos % (Auto) 0.2, Baso % (Auto) 0.2, Neut # (Auto) 16.3 H, Lymph # (Auto) 1.3, [place] # (Auto) 1.4 H, Eos # (Auto) 0.0, Baso # (Auto) 0.0, Total Counted 100, Neutrophils % (Manual) 87 H, Lymphocytes % (Manual) 9 L, Monocytes % (Manual) 4, Platelet Estimate Normal, RBC Morphology Normal 04/04/21 06:29: Sodium 131 L, Potassium 3.6, Chloride 97 L, Carbon Dioxide 25, Anion Gap 12.6, BUN 10, Creatinine 0.60 L, Estimated Creat Clear 161, Estimated GFR 144, Est GFR ( Amer) 175, Glucose 153 H, Calcium 8.8, Total Bilirubin 1.1, AST 37, ALT 36, Alkaline Phosphatase 119, Total Protein 9.0 H, Albumin 5.0, Globulin 4.0 H, Albumin/Globulin Ratio 1.3 I & O for Last 24 hours: Intake & Output 04/01/21 04/02/21 04/03/21 04/04/21 11:59 11:59 11:59 11:59 Output Total 925 / 925 Balance -925 / -925 Weight 165 lb 165 lb - *Routine Respiratory Exam Present: CTA bilaterally - *Routine Cardiovascular Exam Present: RRR - *Routine Extremities Exam Absent: cyanosis, clubbing, edema Comments: Right wrist cath site looks good. Progress Note: A&P (1) Chest pain Status: Acute (2) Smoker Status: Acute (3) Elevated blood pressure reading Status: Acute (4) Elevated troponin Status: Acute (5) Abnormal EKG Status: Acute (6) Gallstone Status: Acute (7) Drug abuse and dependence Status: Acute (8) Heroin use Status: Acute (9) Abdominal pain Status: Acute (10) Vomiting Status: Acute (11) Biliary sludge Status: Acute (12) Abnormal gallbladder ultrasound Status: Acute Assessment and Plan for All Diagnoses:: 1. Elevated troponin with abnormal EKG but with normal coronary arteries by cardiac catheterization. Echocardiogram shows normal ejection fraction. Elevated troponins likely secondary to heroin use/withdrawal and labile blood
--- NOTE | 2021-04-04 08:59 | HMH.ACPN2 ---
Internal Medicine - PN: Subj *Date: 04/04/21 *Time: 08:59 Interval history: Patient feels a little better this morning, BP elevated overnight. Exam Vital signs and Labs for Last 24 Hours: Temp Pulse Resp BP Pulse Ox 97.7 F 60 16 193/99 H 93 L 04/04/21 04:00 04/04/21 06:00 04/04/21 04:00 04/04/21 06:00 04/04/21 04:00 Laboratory Results - last 24 hr 04/03/21 08:28: WBC 15.2 H, RBC 4.83, Hgb 14.4, Hct 44.2, MCV 91.6, MCH 29.8, MCHC 32.6, RDW 13.5, Plt Count 393, MPV 9.5, Neut % (Auto) 87.1 H, Lymph % (Auto) 5.8 L, [place] % (Auto) 5.9, Eos % (Auto) 0.4, Baso % (Auto) 0.8, Neut # (Auto) 13.2 H, Lymph # (Auto) 0.9, [place] # (Auto) 0.9, Eos # (Auto) 0.1, Baso # (Auto) 0.1, Total Counted 100, Neutrophils % (Manual) 88 H, Lymphocytes % (Manual) 10, Monocytes % (Manual) 2, Platelet Estimate Normal, RBC Morphology Normal 04/03/21 08:28: Troponin I 0.06 H 04/03/21 09:25: SARS-CoV-2 (PCR) Not detected, Influenza A Untype (PCR) Not detected, Influenza Type B (PCR) Not detected 04/03/21 10:27: Troponin I 0.09 H 04/03/21 10:42: Urine Color Yellow, Urine Appearance Clear, Urine pH 8.0, Ur Specific [place] 1.015, Urine Protein 1+, Urine Glucose (UA) Negative, Urine Ketones Trace, Urine Blood Negative, Urine Nitrate Negative, Urine Bilirubin Negative, Urine Urobilinogen 0.2, Ur Leukocyte Esterase Negative, Urine RBC None, Urine WBC Occasional, Ur Squamous Epith Cells 3-5, Urine Bacteria None 04/03/21 12:51: Troponin I 0.09 H 04/04/21 06:29: WBC 19.1 H D, RBC 4.96, Hgb 14.7, Hct 45.6, MCV 92.1, MCH 29.6, MCHC 32.2, RDW 13.5, Plt Count 390, MPV 9.3, Neut % (Auto) 85.4 H, Lymph % (Auto) 6.9 L, [place] % (Auto) 7.4, Eos % (Auto) 0.2, Baso % (Auto) 0.2, Neut # (Auto) 16.3 H, Lymph # (Auto) 1.3, [place] # (Auto) 1.4 H, Eos # (Auto) 0.0, Baso # (Auto) 0.0, Total Counted 100, Neutrophils % (Manual) 87 H, Lymphocytes % (Manual) 9 L, Monocytes % (Manual) 4, Platelet Estimate Normal, RBC Morphology Normal 04/04/21 06:29: Sodium 131 L, Potassium 3.6, Chloride 97 L, Carbon Dioxide 25, Anion Gap 12.6, BUN 10, Creatinine 0.60 L, Estimated Creat Clear 161, Estimated GFR 144, Est GFR ( Amer) 175, Glucose 153 H, Calcium 8.8, Total Bilirubin 1.1, AST 37, ALT 36, Alkaline Phosphatase 119, Total Protein 9.0 H, Albumin 5.0, Globulin 4.0 H, Albumin/Globulin Ratio 1.3 Vital Signs - 24 hr 04/03/21 09:17 04/03/21 09:31 04/03/21 09:41 Temperature Pulse Rate 70 64 62 Pulse Rate [Radial] Respiratory Rate 18 18 18 Blood Pressure 179/85 H 207/88 H 175/89 H Blood Pressure [Right Arm] 02 Sat by Pulse Oximetry 96 96 96 04/03/21 10:00 04/03/21 10:30 04/03/21 10:53 Temperature Pulse Rate 68 68 68 Pulse Rate [Radial] Respiratory Rate 18 18 18 Blood Pressure 192/84 H 192/103 H 160/108 H Blood Pressure [Right Arm] 02 Sat by Pulse Oximetry 96 96 96 04/03/21 11:01 04/03/21 11:30 04/03/21 11:47 Temperature Pulse Rate 68 66 Pulse Rate [Radial] Respiratory Rate 18 18 Blood Pressure 178/97 H 192/98 H 192/98 H Blood Pressure [Right Arm] 02 Sat by Pulse Oximetry 95 97 04/03/21 11:57 04/03/21 12:00 04/03/21 12:30 Temperature Pulse Rate 76 69 69 Pulse Rate [Radial] Respiratory Rate 18 18 18 Blood Pressure 175/93 H 175/93 H 145/88 H Blood Pressure [Right Arm] 02 Sat by Pulse Oximetry 96 98 98 04/03/21 13:00 04/03/21 13:30 04/03/21 13:45 Temperature 98 F Pulse Rate 66 62 68 Pulse Rate [Radial] Respiratory Rate 18 16 16 Blood Pressure 184/101 H 179/91 H 170/97 H Blood Pressure [Right Arm] 02 Sat by Pulse Oximetry 93 L 97 96 04/03/21 14:09 04/03/21 16:11 04/03/21 16:25 Temperature Pulse Rate 80 80 Pulse Rate [Radial] 73 Respiratory Rate 14 Blood Pressure Blood Pressure [Right Arm] 193/100 H 02 Sat by Pulse Oximetry 93 L 04/03/21 16:40 04/03/21 16:55 04/03/21 17:10 Temperature Pulse Rate Pulse Rate [Radial] 71 87 89 Respiratory Rate 12 14 12 Blood Pressure Blood Pressure [
--- NOTE | 2021-04-04 12:14 | P.PN_ITS ---
[facility] Anesthesia Checklist - Patient Identification Patient Identification: Arm Band - Structural Data Admitted From: Inpatient Planned Operative Procedure/s: Lap. cholecystectomy Consent for Planned Operative Procedure(s) Verified: Yes - NPO Status Verified Time NPO: 00:00 - Airway Assessment C-Spine Mobility Assessed: Yes TMJ Mobility Assessed: Yes Dentition: Good Dentition - Neurological Assessment Level of Consciousness: Awake Hx Seizures: No Numbness or tingling in extremities: No - Anesthesia Plan Anesthesia Risk discussed: Yes Anesthesia Plan: Verified ASA Class: II Anesthesia Type: General [facility] History I have reviewed the patient's past medical history: Yes Medical History: Denies:: Diabetes Mellitus Type 1, Diabetes Mellitus Type 2, Internal Pacemaker *Have you ever received a pneumonia vaccine?: No *Have you received a flu vaccine this season?: No Anesthesia experience/problems:: None Other Surgeries: No: Pacemaker Amputation: No Fractures: No - *Social History Smoking Status: Current every day smoker Tobacco Type: cigarettes # Packs/Day (cigarettes): 1 Alcohol Intake: never Substance Use Type: heroin Last Used Substance: hours (ago) *Occupational Status:: other Household Members: spouse *Travel in the last 8 weeks: None Family Hx:: Coronary Artery Disease, Heart Attack, Hypertension
--- NOTE | 2021-04-04 13:50 | P.OP_ITS ---
Date of procedure: 04/04/21 Pre-op Diagnosis:: Distended gallbladder Biliary sludge Right upper quadrant pain Post-op Diagnosis:: Same Procedure performed:: Laparoscopic cholecystectomy Surgeon:: Pradeep Calix MD TUMBLER MACHINE OPERATOR:: Kennedy Pang Anesthesia: GETA Estimated blood loss (mL): 15 Operative findings:: Infundibular thickening Operative note:: After informed consent was obtained, the patient was taken to the operating room and placed in the supine position. General anesthesia was induced and the abdomen was prepped and draped in a sterile fashion. After infiltration with local anesthetic an infraumbilical incision was made. A Veress needle was placed in position. The abdomen was insufflated. A 5 mm optical trocar was placed in position. Under direct visualization, a 12 mm trocar was placed in the subxiphoid position and 2 additional 5 mm trocars were placed in the right upper quadrant. The gallbladder was elevated up and over the liver margin. The tissue around the cystic duct was carefully dissected. 3 clips were placed proximally and the duct was transected with harmonic emani. Harmonic emani were then utilized to dissect the gallbladder away from the liver margin with careful attention to the control of the cystic artery. The gallbladder was placed in a retrieval bag and removed through the subxiphoid trocar site. The right upper quadrant was thoroughly irrigated. No active bleeding or bile leak was noted. Fascia at the subxiphoid trocar site was reapproximated utilizing the NeoClose device. The remaining trocars were removed. All wounds were irrigated and skin was closed with 4-0 Monocryl in a subcuticular fashion. Steri-Strips were applied. The patient's anesthetic agents were reversed and extubation was completed prior to transfer to recovery in stable condition. Condition: stable Disposition: PACU Specimens:: Gallbladder and contents Complications:: No immediate
--- NOTE | 2021-04-04 13:55 | HMH.ANESI ---
[facility] Anesthesia Record Part I Intake, IV Amount: 500 Estimated blood loss (mL): 15 Urine output (mL): 0 Blood Pressure: 165/98 SaO2: 93 Pulse Rate: 61 Respiratory Rate: 20 Temperature: 98.3 F Patient is:: Drowsy, Oral/Nasal airway Stable to PACU at:: 13:53
--- NOTE | 2021-04-04 15:06 | SUR.OPER ---
1306- ancef 2g pulled and administered by moi ingram per preop orders
--- NOTE | 2021-04-04 18:11 | PC.NURSE ---
PT IS RESTING IN BED WITH FAMILY AT BEDSIDE. ALERT AND ORIENTED X4. DRESSINGS TO THE ABDOMEN C/D/I. LUNG SOUNDS CLEAR. ABDOMEN SOFT/TENDER WITH HYPOACTIVE BOWEL SOUNDS. PT HAS VOIDED SINCE ARRIVING BACK TO THE FLOOR FROM SURGERY. PT CONTINUES TO HAVE AN ELEVATED BP. NOTIFIED (IRBESARTAN 150 MG, CLONIDINE 0.1 MG ONE TIME ORDERED). TOLERATING CLEAR LIQUIDS WELL. WILL CONTINUE TO MONITOR.
[2021-04-05] VITALS: BP 211/119; PULSE 60; PULSE 74; RESP 18; TEMP 36.7; O2SAT 98
[2021-04-05 04:00] VITALS: BP 200/127; PULSE 75; PULSE 80; RESP 20; TEMP 37.1; O2SAT 96
--- NOTE | 2021-04-05 04:04 | PC.NURSE ---
Nurse was notified of pts blood pressure.
[2021-04-05 06:00] VITALS: BMI 22.8
--- NOTE | 2021-04-05 07:18 | HMH.GSPN ---
Subjective Patient reports: feels better, still having pain Narrative: Overall feels some better . Significant hypertension overnight noted per nursing staff. Primary service managing Progress Note: A&P (1) Chest pain Status: Acute (2) Smoker Status: Acute (3) Elevated blood pressure reading Status: Acute Assessment and plan: Ongoing management as per primary service (4) Elevated troponin Status: Acute (5) Abnormal EKG Status: Acute (6) Gallstone Status: Acute (7) Drug abuse and dependence Status: Acute (8) Heroin use Status: Acute (9) Abdominal pain Status: Acute (10) Vomiting Status: Acute (11) Biliary sludge Status: Acute (12) Abnormal gallbladder ultrasound Status: Acute (13) Acute on chronic cholecystitis Status: Acute Assessment and plan: Overall, doing fairly well status post laparoscopic cholecystectomy. Continue to increase ambulation Follow-up morning labs Advance diet as tolerated and as per primary service Exam Vital signs and Labs for Last 24 Hours: Temp Pulse Resp BP Pulse Ox 98.7 F 75 20 200/127 H 96 04/05/21 04:00 04/05/21 04:00 04/05/21 04:00 04/05/21 04:00 04/05/21 04:00 Laboratory Results - last 24 hr 04/04/21 06:29: Total Counted 100, Neutrophils % (Manual) 87 H, Lymphocytes % (Manual) 9 L, Monocytes % (Manual) 4, Platelet Estimate Normal, RBC Morphology Normal I & O for Last 24 hours: Intake & Output 04/02/21 04/03/21 04/04/21 04/05/21 11:59 11:59 11:59 11:59 Intake Total 500 / 500 Output Total 1150 / 1150 900 / 900 Balance -1150 / -1150 -400 / -400 Weight 165 lb 165 lb 160 lb 1.6 oz - Constitutional no acute distress - *Routine Respiratory Exam Absent: respiratory distress - *Routine Cardiovascular Exam Absent: tachycardia - *Routine Abdominal Exam Comments: Dressings intact. No spreading cellulitis.
[2021-04-05 07:21] LABS: Chloride 96 mmol/L (98-107); Potassium 3.3 mmoL/L (3.5-5.1); Sodium 128 mmol/L (136-145)
[2021-04-05 07:24] LABS: Alanine Aminotransferase 61 U/L (12-78); Albumin Level 4.8 g/dl (3.5-5.0); Albumin/Globulin Ratio 1.1 (1.1-1.8); Alkaline Phosphatase 125 U/L (38-126); Anion Gap 15.3 mEq/L (5-15); Aspartate Amino Transferase 76 U/L (17-59); Bilirubin,Total 1.5 mg/dl (0.2-1.3); Blood Urea Nitrogen 19 mg/dl (9-20); Carbon Dioxide 20 mmol/L (22.0-30.0); Creatinine Clearance Estimated 156 mL/min (50-200); Estimated Glomerular Filt Rate 144 ml/min (>60); GFR (African American) 175 ML/MIN (>60); Globulin 4.4 g/dL (1.3-3.2); Total Protein,Serum 9.2 g/dl (6.3-8.2)
[2021-04-05 07:25] LABS: Calcium 8.6 mg/dl (8.4-10.2); Glucose 117 mg/dl (74-100)
[2021-04-05 08:00] VITALS: BP 141/63; PULSE 104; RESP 20; TEMP 36.8; O2SAT 96
--- NOTE | 2021-04-05 09:05 | HMH.ACPN2 ---
<Eneida Hess - Last Filed: 04/05/21 09:05> Internal Medicine - PN: Subj *Date: 04/05/21 *Time: 09:05 Interval history: Patient is feeling much better after his cholecystectomy. His abdominal pain has resolved and he just has some soreness around the incision sites. He is tolerating his current diet. He slept better last night. He wants to go home today. Exam Vital signs and Labs for Last 24 Hours: Temp Pulse Resp BP Pulse Ox 98.7 F 75 20 200/127 H 96 04/05/21 04:00 04/05/21 04:00 04/05/21 04:00 04/05/21 04:00 04/05/21 04:00 Laboratory Results - last 24 hr 04/05/21 06:22: Sodium 128 L, Potassium 3.3 L, Chloride 96 L, Carbon Dioxide 20 L, Anion Gap 15.3 H, BUN 19 D, Creatinine 0.60 L, Estimated Creat Clear 156, Estimated GFR 144, Est GFR ( Amer) 175, Glucose 117 H D, Calcium 8.6, Total Bilirubin 1.5 H, AST 76 H D, ALT 61 D, Alkaline Phosphatase 125, Total Protein 9.2 H, Albumin 4.8, Globulin 4.4 H, Albumin/Globulin Ratio 1.1 I & O for Last 24 hours: Intake & Output 04/02/21 04/03/21 04/04/21 04/05/21 11:59 11:59 11:59 11:59 Intake Total 500 / 500 Output Total 1150 / 1150 900 / 900 Balance -1150 / -1150 -400 / -400 Weight 165 lb 165 lb 160 lb 1.6 oz - Constitutional no acute distress - *Routine Respiratory Exam Present: CTA bilaterally - *Routine Cardiovascular Exam Present: RRR - *Routine Abdominal Exam Present: soft, normoactive bowel sounds, tenderness (Around incision sites, dressings clean and dry) - *Routine Extremities Exam Absent: cyanosis, clubbing, edema - *Routine Skin Exam Present: warm. Absent: rash - *Routine Neurological Exam Present: alert, oriented X3 Assessment and Plan (1) Chest pain Status: Acute Qualifiers: Chest pain type: unspecified Qualified Code(s): R07.9 - Chest pain, unspecified Category: Medical Code(s): R07.9 - Chest pain, unspecified (2) Smoker Status: Acute Category: Social Hx Code(s): F17.200 - Nicotine dependence, unspecified, uncomplicated (3) Elevated blood pressure reading Status: Acute Category: Medical Code(s): R03.0 - Elevated blood-pressure reading, without diagnosis of hypertension (4) Elevated troponin Status: Acute Category: Medical Code(s): R77.8 - Other specified abnormalities of plasma proteins (5) Abnormal EKG Status: Acute Category: Medical Code(s): R94.31 - Abnormal electrocardiogram [ECG] [EKG] (6) Gallstone Status: Acute Qualifiers: Cholecystitis presence: without cholecystitis Biliary obstruction: without biliary obstruction Qualified Code(s): K80.20 - Calculus of gallbladder without cholecystitis without obstruction Category: Medical Code(s): K80.20 - Calculus of gallbladder without cholecystitis without obstruction (7) Drug abuse and dependence Status: Acute Category: Medical Code(s): F19.20 - Other psychoactive substance dependence, uncomplicated (8) Heroin use Status: Acute Category: Medical Code(s): F11.90 - Opioid use, unspecified, uncomplicated (9) Abdominal pain Status: Acute Category: Medical Code(s): R10.9 - Unspecified abdominal pain (10) Vomiting Status: Acute Category: Medical Code(s): R11.10 - Vomiting, unspecified (11) Biliary sludge Status: Acute Category: Medical Code(s): K83.8 - Other specified diseases of biliary tract (12) Abnormal gallbladder ultrasound Status: Acute Category: Medical Code(s): R93.2 - Abnormal findings on diagnostic imaging of liver and biliary tract (13) Acute on chronic cholecystitis Status: Acute Category: Medical Code(s): K81.2 - Acute cholecystitis with chronic cholecystitis - Assessment and plan all Dx Assessment and Plan for all problems:: Patient is stable to be discharged today. He will follow-up with Dr. Calix in the office. His blood pressure is still elevated. He will be discharged on blood pressure medication will need to follow-up wi
[2021-04-05 09:26] LABS: Basophils # 0.1 K/mm3 (0-0.2); Basophils % 0.6 % (0.1-2.0); Eosinophils # 0.1 K/mm3 (0.0-0.4); Eosinophils % 0.6 % (0.1-12.0); Hematocrit 53.9 % (42.0-52.0); Lymphocytes # 1.3 K/mm3 (0.7-4.5); Lymphocytes % 6.1 % (10-50); Mean Corpuscular HGB Conc 31.7 g/dL (31.8-35.4); Mean Corpuscular Hemoglobin 29.4 pg (27.0-31.2); Mean Corpuscular Volume 92.6 fl (80-94); Monocytes # 1.2 K/mm3 (0.1-1.0); Monocytes % 5.6 % (1.7-9.3); Neutrophils # 18.7 K/mm3 (1.8-7.8); Neutrophils % 87.1 % (37.0-80.0); Platelet Count 349 K/mm3 (142-424); Red Blood Count 5.82 M/mm3 (4.60-6.20); Red Cell Distribution Width 13.5 % (11.5-17.5); White Blood Count 21.5 K/mm3 (4.8-10.8)
[2021-04-05 09:42] LABS: MANUAL DIFFERENTIAL MANUAL DIFFERENTIAL (MANUAL DIFF)
[2021-04-05 10:24] LABS: Lymphocytes % 10 % (10-50); Monocytes % 13 % (2-9); Neutrophils % 77 % (42-76); Total Cells Counted 100
[2021-04-05 10:25] LABS: Platelet Estimate Normal
--- NOTE | 2021-04-05 10:50 | HMH.ANESII ---
[facility] Anesthesia Record Part II Discharge Time: 14:33 Destination: Second Floor PACU nurse assessment reviewed?: Yes Patient Condition:: Good Anesthesia Complications:: None Swallowing reflex intact?: Yes Cyanosis?: No Blood Pressure: 181/102 Pulse Rate: 62 Temperature: 98.3 F Mental Status: Alert & Oriented Pain level:: 0 Nausea and/or vomitting:: None Intake, IV Amount: 0
[2021-04-05 10:51] VITALS: BP 181/102; PULSE 62; TEMP 36.8
[2021-04-05 14:08] LABS: Hemoglobin 17.2 g/dL (14.1-18.0)
--- NOTE | 2021-04-08 11:11 | HMH.DCSUM ---
General - General Admission date:: 04/03/21 Discharge date: 04/05/21 HPI HPI: 45-year-old white male who developed nausea, vomiting and abdominal pain after eating cheese yesterday about 5 PM. Patient continues to have some vomiting since then. He was seen in the emergency department for the symptoms and given a combination of medications for nausea vomiting and chest pain which included nitroglycerin. His symptoms have improved since then. His blood pressure was noted to be elevated on admission and after being given labetalol has improved to 145/77 mmHg. Patient's chest pain has resolved but his lab work included troponins which are elevated at 0.06 and 0.09 with abnormal EKG showing ST segment depression in the inferolateral leads. No old EKG for comparison. He is found to have gallstones on work-up in the ER. In light of his complaint of chest pain, abnormal EKG and elevated troponins we recommend proceeding with cardiac catheterization later today. We will hold on antiplatelet therapy in case surgery is needed for gallstones. Preliminary echocardiogram today shows preserved ejection fraction. (above as per Paluo Miranda) Further as to above, the patient is a daily heroin user. He states he thought he was having dose withdrawal yesterday when he began vomiting multiple times. He began having pain in the epigastric area that was radiating up into his chest and around his back. He used heroin this morning but it did not help his symptoms. He continued to vomit and have horrible abdominal pain. His chest x-ray showed nothing acute. His chest CTA showed no evidence of PE. He did have mild pulmonary groundglass opacities favoring edema over pneumonia and a moderately distended gallbladder. His gallbladder ultrasound showed a mildly distended gallbladder with sludge and fatty infiltration. He was admitted and given Zofran but states he is still nauseated. He is getting ready to be taken down for a heart cath. His is requesting something for heroin withdrawal. Hospital Course Hospital Course: The patient's head CT showed chronic sinusitis but nothing acute. His chest x-ray?was normal. His CTA showed no PE but mild pulmonary groundglass opacities favoring edema over pneumonia. He had a moderately distended gallbladder with sludge and a gallbladder ultrasound was recommended. He had the ultrasound which showed a distended gallbladder with mild sludge. He was seen by cardiology and taken for a heart cath. The heart cath with a normal. He had an echo showing an EF of 55%. Phenergan was added for nausea and clonidine was added for elevated blood pressure. General surgery was consulted due to his gallbladder pain. He was seen by Dr. Calix who planned to remove his gallbladder. This was performed on 04/04/2021. He tolerated the procedure well. Cardiology added Norvasc 10 mg and irbesartan 75 mg twice daily due to his consistently elevated blood pressure. By 04/05/2021, the patient was feeling much better. He only had abdominal pain around the incision sites and was able to tolerate a diet. He wanted to go home. He was stable to be discharged home on amlodipine, irbesartan, and clonidine. He will follow with Dr. Calix, cardiology, and his PCP. Objective Vital signs: Temp Pulse Resp BP Pulse Ox 98.3 F 62 20 181/102 H 96 04/05/21 10:51 04/05/21 10:51 04/05/21 08:00 04/05/21 10:51 04/05/21 08:00 Narrative: - Constitutional no acute distress - *Routine Respiratory Exam Present: CTA bilaterally - *Routine Cardiovascular Exam Present: RRR - *Routine Abdominal Exam Present: soft, normoactive bowel sounds, tenderness (Around incision sites, dressings clean and dry) - *Routine Extremities Exam Absent: cyanosis, clubbing, edema - *Routine Skin Exam Present: warm. Absent: rash - *Routine Neurological Exam Present: alert, oriented X3 DS: Diagnosis - Discharge Diagnosis (1) Chest pain Status:
== END 2021-04-05 10:33 | disposition home or self-care (01) ==
LOC: ER 12:24 → 2ND 04-04 06:00
PROVIDERS: Internal Medicine; Surgery; Admitting Provider Family Medicine; Emergency Provider Emergency Medicine; Visit Provider Family Medicine
PROC: 0FT44ZZ Resection of Gallbladder, Percutaneous Endoscopic Approach (ICD-10-PCS; CPT 47562; principal; 2021-04-04 15:15)
DX: F11.20 Opioid dependence, uncomplicated (principal); K81.2 Acute cholecystitis with chronic cholecystitis; R07.9 Chest pain, unspecified; F17.210 Nicotine dependence, cigarettes, uncomplicated; Z79.899 Other long term (current) drug therapy; Z20.822 Contact with and (suspected) exposure to COVID-19
CPT/HCPCS: 47562; 36415; 70450; 71045; 71275; 76705; 80053; 81001; 83690; 84484; 85007; 85025; 93005; 93306; 93454; 96365; 96375; 96376; 99284; C1725; C1769; C9803; G0378; J1644; J2405; J2543; Q9967; U0003; U0005

== ENCOUNTER 2021-10-12 14:21 | Inpatient (IN) | payer MEDICAID, SELFPAY ==
[2021-10-12] VITALS (13 sets, daily range): BP systolic 90–169; BP diastolic 53–81; PULSE 48–69; RESP 16–18; TEMP 36.9–37.3; O2SAT 93–100; BMI 23.0; BMI 22.3
--- NOTE | 2021-10-12 14:11 | XR_ITS ---
PROCEDURE INFORMATION: Exam: XR Chest Exam date and time: 10/12/2021 2:11 PM Age: 45 years old Clinical indication: Pain; Right-sided; Additional info: R rib pain, smoker TECHNIQUE: Imaging protocol: Radiologic exam of the chest. Views: 2 views. COMPARISON: CR XR CHEST PORTABLE 04/03/2021 9:00 AM FINDINGS: Low lung volumes causes crowding of the bronchovascular structures. Bilateral perihilar, infrahilar, and basal interstitial prominence and ground-glass opacifications. Associated perihilar and basal segmental bronchial wall thickening. Upper lungs are clear. No pleural effusion or pneumothorax. Normal cardiomediastinal silhouette and central airways. No acute skeletal abnormality or aggressive osseous lesion. IMPRESSION: Bilateral perihilar, infrahilar, and basal lung findings as can be seen with an acute viral illness or interstitial pulmonary edema. Chronic interstitial disease also within the differential diagnosis, however felt less likely.
--- NOTE | 2021-10-12 14:16 | PC.NURSE ---
pt states he thinks the pain is getting better
[2021-10-12 14:19] LABS: Basophils # 0.1 K/mm3 (0-0.2); Eosinophils # 0.2 K/mm3 (0.0-0.4); Eosinophils % 1.9 % (0.1-12.0); Hematocrit 42.9 % (42.0-52.0); Hemoglobin 13.7 g/dL (14.1-18.0); Lymphocytes # 1.8 K/mm3 (0.7-4.5); Lymphocytes % 15.1 % (10-50); Mean Corpuscular HGB Conc 31.9 g/dL (31.8-35.4); Mean Corpuscular Hemoglobin 29.4 pg (27.0-31.2); Mean Corpuscular Volume 92.2 fl (80-94); Mean Platelet Volume 9.3 fl (7.4-10.4); Monocytes # 0.7 K/mm3 (0.1-1.0); Monocytes % 6.1 % (1.7-9.3); Neutrophils # 8.9 K/mm3 (1.8-7.8); Platelet Count 349 K/mm3 (142-424); Red Blood Count 4.65 M/mm3 (4.60-6.20); Red Cell Distribution Width 13.8 % (11.5-17.5); White Blood Count 11.7 K/mm3 (4.8-10.8)
[2021-10-12 14:37] LABS: Chloride 99 mmol/L (98-107); Potassium 5.2 mmoL/L (3.5-5.1); Sodium 137 mmol/L (136-145)
[2021-10-12 14:39] LABS: Alanine Aminotransferase 58 U/L (12-78); Aspartate Amino Transferase 64 U/L (17-59); Blood Urea Nitrogen 14 mg/dl (9-20); Creatinine Clearance Estimated 107 mL/min (50-200); Estimated Glomerular Filt Rate 90 ml/min (>60); GFR (African American) 109 ML/MIN (>60)
[2021-10-12 14:40] LABS: Albumin Level 4.2 g/dl (3.5-5.0); Albumin/Globulin Ratio 1.1 (1.1-1.8); Alkaline Phosphatase 204 U/L (38-126); Anion Gap 14.2 mEq/L (5-15); Bilirubin,Total 0.5 mg/dl (0.2-1.3); Calcium 8.7 mg/dl (8.4-10.2); Carbon Dioxide 29 mmol/L (22.0-30.0); Globulin 3.8 g/dL (1.3-3.2); Glucose 131 mg/dl (74-100)
--- NOTE | 2021-10-12 14:40 | HMH.EDGENADL ---
ED Disposition Clinical Impression: Pulmonary emboli Qualifiers: Pulmonary embolism type: unspecified Chronicity: acute Acute cor pulmonale presence: without acute cor pulmonale Qualified Code(s): I26.99 - Other pulmonary embolism without acute cor pulmonale Disposition: Admitted As Inpatient Condition on Discharge: Serious Referrals: Brady Saenz [Primary Care Provider] - - Critical Care Critical Care Time: Yes Attestation: On 10/12/21, the high probability of a clinically significant, sudden or life threatening deterioration of the following system(s) required my full and direct attention, intervention and personal management. The time I documented below is in addition to time spent performing reported procedures but includes the following listed in this critical care notation. Total Critical Care Time: 30 Vital system(s) involved:: Circulatory Failure My critical care processes included: Assessment & monitoring of V/S, Initial and Re-exams, Data Review/Interpretation, Coordinating Care, Medication Orders and management, Documentation Medical Decision Making - Medical Records Medical records reviewed: Yes: I reviewed the patient's medical records. MR Comment: Reviewed discharge summary from admission here in March. He had a CT angiogram at that time, he had a cardiac cath which showed normal coronary arteries. He had a cholecystectomy performed. - Jorge Inquiry Pt receiving controlled substance: No Vital Signs: 10/12/21 13:57 10/12/21 14:26 10/12/21 14:42 Temperature 99.0 F Temperature Source Oral Pulse Rate 52 L Pulse Rate [Left Radial] 69 Respiratory Rate 18 Blood Pressure 116/74 127/69 Blood Pressure [Right Arm] 90/53 L Blood Pressure Mean 85 95 Blood Pressure Mean [Right Arm] 65 Blood Pressure Source [Right Arm] Automatic Cuff Blood Pressure Position Sitting Sitting Blood Pressure Position [Right Arm] Sitting 02 Sat by Pulse Oximetry 94 L 93 L 96 Oxygen Delivery Method Room Air Room Air Room Air 10/12/21 14:56 10/12/21 15:26 10/12/21 15:41 Temperature Temperature Source Pulse Rate 51 L 51 L 48 L Pulse Rate [Left Radial] Respiratory Rate Blood Pressure 116/74 169/71 H 152/71 H Blood Pressure [Right Arm] Blood Pressure Mean 88 103 110 Blood Pressure Mean [Right Arm] Blood Pressure Source [Right Arm] Blood Pressure Position Sitting Sitting Blood Pressure Position [Right Arm] 02 Sat by Pulse Oximetry 100 97 97 Oxygen Delivery Method Room Air Room Air Room Air 10/12/21 15:56 10/12/21 16:11 Temperature Temperature Source Pulse Rate 50 L 60 Pulse Rate [Left Radial] Respiratory Rate Blood Pressure 129/75 143/79 H Blood Pressure [Right Arm] Blood Pressure Mean 93 100 Blood Pressure Mean [Right Arm] Blood Pressure Source [Right Arm] Blood Pressure Position Sitting Sitting Blood Pressure Position [Right Arm] 02 Sat by Pulse Oximetry 97 98 Oxygen Delivery Method Room Air Room Air - Lab Data Lab Results 10/12/21 14:05: WBC 11.7 H, RBC 4.65, Hgb 13.7 L, Hct 42.9, MCV 92.2, MCH 29.4, MCHC 31.9, RDW 13.8, Plt Count 349, MPV 9.3, Neut % (Auto) 76.0, Lymph % (Auto) 15.1, [place] % (Auto) 6.1, Eos % (Auto) 1.9, Baso % (Auto) 1.0, Neut # (Auto) 8.9 H, Lymph # (Auto) 1.8, [place] # (Auto) 0.7, Eos # (Auto) 0.2, Baso # (Auto) 0.1 10/12/21 14:05: Sodium 137, Potassium 5.2 H, Chloride 99, Carbon Dioxide 29, Anion Gap 14.2, BUN 14, Creatinine 0.90, Estimated Creat Clear 107, Estimated GFR 90, Est GFR ( Amer) 109, Glucose 131 H, Calcium 8.7, Total Bilirubin 0.5, AST 64 H, ALT 58, Alkaline Phosphatase 204 H, Total Protein 8.0, Albumin 4.2, Globulin 3.8 H, Albumin/Globulin Ratio 1.1 10/12/21 14:05: ESR 32 H 10/12/21 14:05: C-Reactive Protein 46.1 H 10/12/21 14:05: Procalcitonin 0.081 10/12/21 14:05: Lipase 33 10/12/21 14:05: Troponin I < 0.01 10/12/21 14:55: Lactate 1.0 10/12/21 14:55: SARS-CoV-2 (PCR) Not detected, Influenza A Untype (PCR) Not
--- NOTE | 2021-10-12 14:52 | CT_ITS ---
PROCEDURE INFORMATION: Exam: CT Abdomen And Pelvis With Contrast Exam date and time: 10/12/2021 3:02 PM Age: 45 years old Clinical indication: Abdominal pain; Flank; Right lower quadrant (rlq); Additional info: R flank pain TECHNIQUE: Imaging protocol: Computed tomography of the abdomen and pelvis with contrast. Radiation optimization: All CT scans at this facility use at least one of these dose optimization techniques: automated exposure control; mA and/or kV adjustment per patient size (includes targeted exams where dose is matched to clinical indication); or iterative reconstruction. Contrast material: ISOVUE; Contrast volume: 75 ml; Contrast route: IV; COMPARISON: US GALLBLADDER 04/03/2021 11:24 AM FINDINGS: Liver: No hepatomegaly. A 9 mm hypoattenuating subcapsular liver lesion segment series 3, image 33, and coronal series 4, image 38, indeterminate density of 52, not clearly seen on the previous CTA exam from 04/03/2021 but that was performed with dynamic arterial phase technique. Another questionable 5 mm hypoattenuating lesion in the posterior upper right liver series 4, image 45. This is too small to accurately characterize. Small focus of diminished attenuation in the medial segment of the left lobe of the liver series 3, images 32-33, likely focal benign periligamentous fatty change. Gallbladder and bile ducts: Cholecystectomy clips. Biliary tree is within normal limits. Pancreas: Atrophic changes in the pancreas. No ductal dilatation or mass. Spleen: The spleen is normal. Adrenal glands: The adrenal glands are normal. Kidneys and ureters: The kidneys are normal. The ureters are normal. Stomach and bowel: The ascending through descending colon are prominently distended with fecal material, suggesting constipation or colonic ileus. The sigmoid colon is mostly empty and contracted which likely accounts for slightly thickened appearance, though the differential would be colitis. There is no pericolic edema fluid. No extraluminal gas bubbles. No significantly dilated loops to confirm mechanical obstruction. Scattered small intestinal air-fluid levels, but no dilated loops or mucosal thickening. No acute findings in the stomach. Appendix: No findings of appendicitis. Intraperitoneal space: There is no free intraperitoneal air. There is no significant free intraperitoneal fluid. Vasculature: For chest findings, please see the chest CTA report. Multiple right lower lobe pulmonary emboli , and ground-glass disease in the lower lungs again noted. Mild hypoenhancement of the right iliac veins compared with left which may be due to flow phenomenon/mixing phenomenon rather than clot, not well evaluated on this exam. Cannot exclude some thrombus, particularly given the fact that this patient has acute pulmonary emboli, e.g. see coronal series 4, image 39, axial series 3, image 85. There is no aortic aneurysm.The vasculature demonstrates scattered mild atherosclerotic calcification. Lymph nodes: No significantly enlarged lymph nodes by short axis criteria. Urinary bladder: The urinary bladder is nearly empty which likely accounts for slightly thickened appearance, not well evaluated. No calcified stones. Reproductive: The prostate and seminal vesicles are normal. Bones/joints: There is no evidence of acute fracture. Mild right side sacroiliitis. Soft tissues: There are no soft tissue masses or fluid collections in the abdomen and pelvis. IMPRESSION: 1. Multiple right lower lobe pulmonary emboli again noted, better seen on the CTA exam. (This result was already telephoned to Dr. Alcaraz.) 2. There is slight heterogeneous hypoenhance
--- NOTE | 2021-10-12 14:52 | CT_ITS ---
PROCEDURE INFORMATION: Exam: CTA Chest With Contrast Exam date and time: 10/12/2021 3:02 PM Age: 45 years old Clinical indication: Pain; Pleuordynia; Additional info: R side pain, pleuritic. Smoker. TECHNIQUE: Imaging protocol: Computed tomographic angiography of the chest with contrast. 3D rendering (Not supervised by radiologist): MIP and/or 3D reconstructed images were created by the technologist. Radiation optimization: All CT scans at this facility use at least one of these dose optimization techniques: automated exposure control; mA and/or kV adjustment per patient size (includes targeted exams where dose is matched to clinical indication); or iterative reconstruction. Contrast material: ISOVUE; Contrast volume: 75 ml; Contrast route: INTRAVENOUS (IV); COMPARISON: CT ANGIO CHEST PE PROTOCOL 04/03/2021 10:07 AM FINDINGS: Pulmonary arteries: Multiple acute pulmonary emboli. There are large segmental and subsegmental emboli in the right lower lobe, including some occlusive thrombus, see coronal series 1001, images 45-56, axial series 5, images 67. Aorta: No thoracic aortic aneurysm or obvious dissection, the aorta is not well enhanced on this PE protocol exam. Lungs: Hazy ground-glass opacities predominantly in the lower lobes, which could be edema or pneumonia. Mild subsegmental atelectasis. No focal consolidation. No discrete mass. Pleural spaces: There is trace posterior pleural fluid or thickening on the right. No significant layering pleural effusion. No pneumothorax. Heart: Upper normal cardiac size. No significant pericardial effusion. A few coronary artery calcifications are present. Heart RV/LV ratio: RV/LV ratio approximate 0.85, within normal limits. However, there is slight reflux of contrast into the IVC and hepatic veins, which can be seen with right heart strain or valvular heart disease. Lymph nodes: No significantly enlarged lymph nodes by short axis criteria. Bones/joints: There is no evidence of acute fracture. There are spinal degenerative changes, with multilevel disc narrrowing and spondylosis. Cleft in the upper body of sternum is chronic and well corticated, likely developmental or less likely old trauma. Soft tissues: A metallic clip or BB in the right breast/chest wall. Left-sided gynecomastia. Other findings: For abdomen-pelvis findings, please see the abdomen CT report. IMPRESSION: 1. Acute pulmonary embolus; multiple large right lower lobe emboli including some occlusive thrombus. 2. Mild reflux of contrast into the IVC and hepatic veins, which could be due to right heart strain or valvular heart disease. However, the right ventricle is not significantly dilated. 3. Hazy ground-glass pulmonary opacities greatest in the lower lobes with patchy subsegmental atelectasis, correlate for pneumonia or edema. No focal consolidation. 4. Mild coronary artery calcifications. 5. Additional nonemergency and chronic findings as above.
[2021-10-12 14:55] LABS: Lipase 33 U/L (23-300)
--- NOTE | 2021-10-12 14:58 | PC.NURSE ---
pt given urinal for sample collection
[2021-10-12 15:01] LABS: C-Reactive Protein 46.1 mg/L (0-4)
--- NOTE | 2021-10-12 15:08 | ECG_ITS ---
APPROVED REPORT Exam: Resting ECG HR:49 bpm ECG Measurements Heart Rate 49 AXES NC 143 P 48 QRSd 86 QRS 85 QT 480 T 22 QTc 451 Conclusion SINUS BRADYCARDIA BORDERLINE ECG UNCONFIRMED REPORT Electronically signed by : Bennett Ackerman MD 10/13/2021 09:13:01
[2021-10-12 15:11] LABS: Erythrocyte Sedimentation Rate 32 mm/hr (0-15)
--- NOTE | 2021-10-12 15:12 | PC.NURSE ---
pt to CT with [employer] trader via [facility]
[2021-10-12 15:14] LABS: Procalcitonin 0.081 ng/mL (0.0-2.0)
[2021-10-12 15:16] LABS: Coronavirus 19, PCR Not Detected (NotDetected); Influenza A, PCR Not Detected (NotDetected); Influenza B, PCR Not Detected (NotDetected)
--- NOTE | 2021-10-12 15:18 | PC.NURSE ---
UA sent to lab
[2021-10-12 15:22] LABS: Microscopic, Urine URINE MICROSCOPIC (MICROSCOPIC)
[2021-10-12 15:32] LABS: Appearance,Urine CLEAR (Clear); Bilirubin,Urine Negative (Negative); Blood, Urine Negative (Negative); Color,Urine YELLOW (Yellow); Glucose,Urine (UA) Negative (Negative); Ketones,Urine Negative (Negative); Leukocyte Esterase,Urine Negative (Negative); Nitrate,Urine Negative (Negative); Protein,Urine Negative (Negative); Urobilinogen,Urine 0.2 EU/dl (0.2)
[2021-10-12 15:33] LABS: Troponin I < 0.01 ng/ml (0.00-0.034)
[2021-10-12 15:42] LABS: Amphetamine/Metha Screen,Urine Negative ng/ml (<1000)
[2021-10-12 15:43] LABS: Barbiturates Screen,Urine Negative ng/ml (<200); Benzodiazepines Screen,Urine Positive ng/ml (<200)
[2021-10-12 15:44] LABS: Cannabinoid Screen,Urine Negative ng/ml (<50); Cocaine Screen,Urine Negative ng/ml (<300)
[2021-10-12 15:45] LABS: Methadone Screen,Urine Negative ng/ml (<300)
[2021-10-12 15:46] LABS: Opiate Screen,Urine Negative ng/ml (<300); Phencyclidine Screen,Urine Negative ng/ml (<25)
[2021-10-12 16:02] LABS: Bacteria,Urine Trace /lpf; Squamous Epithelial Cell,Urine Occasional #/hpf (0-5); WBC,Urine Occasional #/hpf (0-3)
--- NOTE | 2021-10-12 16:05 | PC.NURSE ---
Paging Dr. Crowell at this time
--- NOTE | 2021-10-12 16:12 | PC.NURSE ---
Addendum entered by La Nena King RN 10/12/21 16:13: for heparin drip dosing Original Note: paging night watch
--- NOTE | 2021-10-12 16:17 | PC.NURSE ---
Spoke with night watch, they are entering the bolus and drip dosing for heparin for pt at this time.
--- NOTE | 2021-10-12 16:23 | PC.NURSE ---
ER speaking with patient and family at regarding update on POC/results
[2021-10-12 16:28] LABS: INR 0.89 (0.9-1.1); Prothrombin Time 10.1 seconds (10.1-12.5)
--- NOTE | 2021-10-12 16:31 | PC.NURSE ---
Spoke with MELVIN Robles regarding patient admission
--- NOTE | 2021-10-12 16:39 | PC.NURSE ---
2nd IV started in left hand, 20 G
--- NOTE | 2021-10-12 16:43 | PC.NURSE ---
pt given warm blanket
--- NOTE | 2021-10-12 16:43 | PC.NURSE ---
REport given to Jennifer KEENAN
--- NOTE | 2021-10-12 17:38 | PC.NURSE ---
Called lab to add ptt on the blood drawn prior to heparin drip started. Kaia in lab states that she is running it now.
--- NOTE | 2021-10-12 19:37 | HMH.HP ---
*Admission Date: 10/12/21 *Chief complaint: Right-sided chest pain *History of present illness: 45-year-old white male with long history of tobacco use disorder, inhalation drug use, spastic diplegia cerebral palsy and recent 2 to 3-week history of significant immobility and bedbound status secondary to a variety of nonspecific illnesses, came to the emergency department this afternoon with a chief complaint of rib pain and splinting chest pain when he took a deep breath in his right lung. He thought initially it was shoulder pain from a previous history of rotator cuff pathology, but felt much worse, and in the emergency department he was found to have significant pulmonary emboli in the right lower and middle lung britt, some obstructing. Did have some backup in the IVC of contrast but no evidence of right ventricular filling or dysfunction. Placed on heparin drip and transitioned up to the floor for further evaluation. Patient specifically denies IV drug use, or inhalation snorting of anything in the past week or so. Patient notes that he has been a couch potato over the past 2 to 3 weeks with a variety of sinus infections, stomach complaints and states that he is not really moved around a lot in the past 2 or 3 weeks. He also has limited mobility because of a history of spastic diplegia from CP in his calves. [facility] History I have reviewed the patient's past medical history: Yes Medical History: Reports:: Hypertension Denies:: Cancer, Diabetes Mellitus Type 1, Diabetes Mellitus Type 2, Internal Pacemaker, MRSA, Seizures *Have you ever received a pneumonia vaccine?: No *Have you received a flu vaccine this season?: No Comment:: Cerebral palsy with spastic diplegia-status post tendon lengthening procedures as a child. Inhalational snorting drug use Other Surgeries: Yes: Cholecystectomy. No: Pacemaker Amputation: No Fractures: No - *Social History Last grade of school completed: GED Smoking Status: Current every day smoker Tobacco Type: cigarettes # Packs/Day (cigarettes): 1 Alcohol Intake: never Substance Use Type: marijuana, heroin, opiates Last Used Substance: days (ago) *Occupational Status:: employed Housing: house Household Members: spouse *Travel in the last 8 weeks: None Family Hx:: Coronary Artery Disease, Heart Attack, Hypertension Review of Systems - Review of Systems Review of systems:: pertinent systems reviewed and negative unless documented below Meds Home Medications Medication Instructions Recorded Confirmed Type Amoxicillin/Potassium Clav 1 tab PO BID 08/20/22 08/20/22 History [Amox-Clav 875-125 mg Tablet] Irbesartan [Avapro 300mg 300 mg PO HS 10/12/21 10/12/21 History tablet] hydroCHLOROthiazide 12.5 mg PO DAILY 10/12/21 10/12/21 History [Hydrochlorothiazide 12.5mg Tab] Allergies Allergy/AdvReac Type Severity Reaction Status Date / Time buprenorphine [From Suboxone] Allergy Verified 04/10/21 13:25 meperidine [From Demerol] Allergy Verified 04/10/21 13:25 naloxone [From Suboxone] Allergy Verified 04/10/21 13:25 Exam Vital signs and Labs for Last 24 Hours: Temp Pulse Resp BP Pulse Ox 99 F 52 L 18 119/69 97 10/12/21 17:42 10/12/21 17:42 10/12/21 17:42 10/12/21 17:42 10/12/21 17:38 Laboratory Results - last 24 hr 10/12/21 14:05: WBC 11.7 H, RBC 4.65, Hgb 13.7 L, Hct 42.9, MCV 92.2, MCH 29.4, MCHC 31.9, RDW 13.8, Plt Count 349, MPV 9.3, Neut % (Auto) 76.0, Lymph % (Auto) 15.1, [place] % (Auto) 6.1, Eos % (Auto) 1.9, Baso % (Auto) 1.0, Neut # (Auto) 8.9 H, Lymph # (Auto) 1.8, [place] # (Auto) 0.7, Eos # (Auto) 0.2, Baso # (Auto) 0.1 10/12/21 14:05: Sodium 137, Potassium 5.2 H, Chloride 99, Carbon Dioxide 29, Anion Gap 14.2, BUN 14, Creatinine 0.90, Estimated Creat Clear 107, Estimated GFR 90, Est GFR ( Amer) 109, Glucose 131 H, Calcium 8.7, Total Bilirubin 0.5, AST 64 H, ALT 58, Alkaline Phosphatase 204 H, Total Protein 8.0, Albumin 4.2, Globulin 3.8 H,
[2021-10-12 19:55] LABS: PTT Heparin (inpatient only) 145.5 Seconds (23.6-34.0)
--- NOTE | 2021-10-12 20:01 | PC.NURSE ---
Notified Chirag with night watch Ptt 145.5. Ordered to lower dose to 1150u/hr. States they will do another ptt lab draw in 4 hours. Read back, verified, and carried out.
[2021-10-13 00:16] LABS: PTT Heparin (inpatient only) 65.5 Seconds (23.6-34.0)
--- NOTE | 2021-10-13 00:20 | PC.NURSE ---
Notified Night watch of Ptt result 65.5. NNO.
[2021-10-13 04:00] VITALS: BP 118/72; PULSE 59; RESP 18; TEMP 37.1; O2SAT 94
[2021-10-13 04:31] LABS: PTT Heparin (inpatient only) 36.6 Seconds (23.6-34.0)
--- NOTE | 2021-10-13 04:35 | PC.NURSE ---
Notified night watch of Ptt of 36.6. New orders for a 4000u Heparin bolus and titrate drip up to 27ml/hr read back, verified, and carried out.
[2021-10-13 04:45] VITALS: BMI 22.8
[2021-10-13 07:22] LABS: Chloride 100 mmol/L (98-107); Sodium 135 mmol/L (136-145)
[2021-10-13 07:23] LABS: Potassium 4.8 mmoL/L (3.5-5.1)
[2021-10-13 07:24] LABS: Basophils # 0.1 K/mm3 (0-0.2); Basophils % 0.6 % (0.1-2.0); Eosinophils # 0.2 K/mm3 (0.0-0.4); Eosinophils % 1.5 % (0.1-12.0); Hematocrit 39.1 % (42.0-52.0); Lymphocytes # 2.1 K/mm3 (0.7-4.5); Lymphocytes % 18.1 % (10-50); Mean Corpuscular HGB Conc 30.9 g/dL (31.8-35.4); Mean Corpuscular Hemoglobin 28.7 pg (27.0-31.2); Mean Corpuscular Volume 92.9 fl (80-94); Mean Platelet Volume 9.8 fl (7.4-10.4); Monocytes # 0.9 K/mm3 (0.1-1.0); Monocytes % 7.7 % (1.7-9.3); Neutrophils # 8.3 K/mm3 (1.8-7.8); Platelet Count 334 K/mm3 (142-424); Red Cell Distribution Width 13.7 % (11.5-17.5); White Blood Count 11.5 K/mm3 (4.8-10.8)
[2021-10-13 07:25] LABS: Alanine Aminotransferase 49 U/L (12-78); Albumin Level 3.7 g/dl (3.5-5.0); Albumin/Globulin Ratio 1.1 (1.1-1.8); Alkaline Phosphatase 174 U/L (38-126); Anion Gap 9.8 mEq/L (5-15); Aspartate Amino Transferase 45 U/L (17-59); Bilirubin,Total 0.5 mg/dl (0.2-1.3); Calcium 8.4 mg/dl (8.4-10.2); Carbon Dioxide 30 mmol/L (22.0-30.0); Globulin 3.5 g/dL (1.3-3.2); Glucose 116 mg/dl (74-100); Total Protein,Serum 7.2 g/dl (6.3-8.2)
[2021-10-13 07:46] LABS: Hemoglobin 12.1 g/dL (14.1-18.0)
[2021-10-13 07:53] VITALS: BP 100/60; PULSE 61; RESP 16; TEMP 37.4; O2SAT 94
[2021-10-13 08:00] VITALS: O2SAT 94
[2021-10-13 08:05] LABS: Blood Urea Nitrogen 12 mg/dl (9-20); Creatinine Clearance Estimated 106 mL/min (50-200); Estimated Glomerular Filt Rate 90 ml/min (>60); GFR (African American) 109 ML/MIN (>60)
--- NOTE | 2021-10-13 08:58 | HMH.ACPN2 ---
Internal Medicine - PN: Subj *Date: 10/13/21 *Time: 08:58 Interval history: Overnight patient slept fairly well, continues to have some splinting type inspiratory pain that is worse when he takes a very deep breath. He states it feels like a muscle spasm on the outside but rubbing on the inside. No dyspnea. Has not required oxygen. Blood pressure and pulse rates have been normal. Tolerating nicotine patch well. Continues to give somewhat variable stories of recent inhalational snorting of recreational drugs to the nursing staff. Exam Vital signs and Labs for Last 24 Hours: Temp Pulse Resp BP Pulse Ox 99.3 F 61 16 100/60 L 94 L 10/13/21 07:53 10/13/21 07:53 10/13/21 07:53 10/13/21 07:53 10/13/21 08:00 Laboratory Results - last 24 hr 10/12/21 14:05: WBC 11.7 H, RBC 4.65, Hgb 13.7 L, Hct 42.9, MCV 92.2, MCH 29.4, MCHC 31.9, RDW 13.8, Plt Count 349, MPV 9.3, Neut % (Auto) 76.0, Lymph % (Auto) 15.1, [place] % (Auto) 6.1, Eos % (Auto) 1.9, Baso % (Auto) 1.0, Neut # (Auto) 8.9 H, Lymph # (Auto) 1.8, [place] # (Auto) 0.7, Eos # (Auto) 0.2, Baso # (Auto) 0.1 10/12/21 14:05: Sodium 137, Potassium 5.2 H, Chloride 99, Carbon Dioxide 29, Anion Gap 14.2, BUN 14, Creatinine 0.90, Estimated Creat Clear 107, Estimated GFR 90, Est GFR ( Amer) 109, Glucose 131 H, Calcium 8.7, Total Bilirubin 0.5, AST 64 H, ALT 58, Alkaline Phosphatase 204 H, Total Protein 8.0, Albumin 4.2, Globulin 3.8 H, Albumin/Globulin Ratio 1.1 10/12/21 14:05: ESR 32 H 10/12/21 14:05: C-Reactive Protein 46.1 H 10/12/21 14:05: Procalcitonin 0.081 10/12/21 14:05: Lipase 33 10/12/21 14:05: Troponin I < 0.01 10/12/21 14:05: PT 10.1, INR 0.89 L 10/12/21 14:05: APTT 28.0 10/12/21 14:55: Lactate 1.0 10/12/21 14:55: SARS-CoV-2 (PCR) Not detected, Influenza A Untype (PCR) Not detected, Influenza Type B (PCR) Not detected 10/12/21 15:20: Urine Color Yellow, Urine Appearance Clear, Urine pH 8.0, Ur Specific [place] 1.010, Urine Protein Negative, Urine Glucose (UA) Negative, Urine Ketones Negative, Urine Blood Negative, Urine Nitrate Negative, Urine Bilirubin Negative, Urine Urobilinogen 0.2, Ur Leukocyte Esterase Negative, Urine RBC None, Urine WBC Occasional, Ur Squamous Epith Cells Occasional, Urine Bacteria Trace 10/12/21 15:20: Urine Opiates Screen Negative, Urine Methadone Screen Negative, Ur Barbituates Screen Negative, Ur Phencyclidine Scrn Negative, Ur Amphetamines Screen Negative, U Benzodiazepines Scrn Positive H, Urine Cocaine Screen Negative, U Marijuana (THC) Screen Negative 10/12/21 19:24: APTT 145.5 H* 10/12/21 23:50: APTT 65.5 H* 10/13/21 04:15: APTT 36.6 H 10/13/21 07:03: WBC 11.5 H, RBC 4.20 L, Hgb 12.1 L D, Hct 39.1 L, MCV 92.9, MCH 28.7, MCHC 30.9 L, RDW 13.7, Plt Count 334, MPV 9.8, Neut % (Auto) 72.0, Lymph % (Auto) 18.1, [place] % (Auto) 7.7, Eos % (Auto) 1.5, Baso % (Auto) 0.6, Neut # (Auto) 8.3 H, Lymph # (Auto) 2.1, [place] # (Auto) 0.9, Eos # (Auto) 0.2, Baso # (Auto) 0.1 10/13/21 07:03: Sodium 135 L, Potassium 4.8, Chloride 100, Carbon Dioxide 30, Anion Gap 9.8, BUN 12, Creatinine 0.90, Estimated Creat Clear 106, Estimated GFR 90, Est GFR ( Amer) 109, Glucose 116 H, Calcium 8.4, Total Bilirubin 0.5, AST 45 D, ALT 49, Alkaline Phosphatase 174 H, Total Protein 7.2, Albumin 3.7 D, Globulin 3.5 H, Albumin/Globulin Ratio 1.1 I & O for Last 24 hours: Intake & Output 10/10/21 10/11/21 10/12/21 10/13/21 11:59 11:59 11:59 11:59 Intake Total 1010 / 1010 Balance 1010 / 1010 Weight 163 lb 6.4 oz Narrative: Patient sleeping comfortably without oxygen. O2 saturations above 95%. Blood pressure normal, pulse rate also normal. Lungs have good air movement. Minimal rhonchi, heart rate regular. Abdomen soft. Is a little bit of pain when he takes a deep breath in the right anterior axillary line lower in the costal margin area. However no crackles in this area. No edema or clubbing. Assessment and Plan (1) Pulmonary emboli Status: Acute
[2021-10-13 09:05] LABS: PTT Heparin (inpatient only) 98.4 Seconds (23.6-34.0)
--- NOTE | 2021-10-13 09:07 | PC.NURSE ---
Recvd critical lab APTT 98.4; pharmacy notified ([facility]) and recvd v.o. for Heparin drip to 24mL/hr (1200 units).
--- NOTE | 2021-10-13 11:45 | HMH.PHAHEP ---
[facility] Pharmacy Heparin Dosing - Demographic Data Admission date:: 10/12/21 Date: 10/13/21 Time: 11:47 Allergies/Adverse Reactions: Allergies Allergy/AdvReac Type Severity Reaction Status Date / Time buprenorphine [From Suboxone] Allergy Verified 04/10/21 13:25 meperidine [From Demerol] Allergy Verified 04/10/21 13:25 naloxone [From Suboxone] Allergy Verified 04/10/21 13:25 Height: 1.8 m Weight: 74.117 kg - Indication Medication therapy:: Heparin Patient Problems: Current Active Problems Chest pain (Acute) Drug abuse and dependence (Acute) Pulmonary emboli (Acute) CVA?: No Bleeding problem?: No Kidney disease?: No [place]?: No Desired PTT range:: Other Comments:: 50-75 - Labs Anticoagulation Lab Results:: 10/12/21 10/13/21 14:05 07:03 Hgb 13.7 L 12.1 L D Hct 42.9 39.1 L Plt Count 349 334 - Monitoring Dose Monitor 1 Date: 10/12/21 Time: 14:05 PTT Result:: 28.0 Infusion Rate:: INFUSION STARTED ABOUT 1630 AT 1400 UNITS/HR (28 ML/HR) WITH A 7500 UNIT BOLUS. Dose Monitor 2 Date: 10/12/21 Time: 19:24 PTT Result:: 145.5 Infusion Rate:: RATE REDUCED TO 1150 UNITS/HR (23 ML/HR) Dose Monitor 3 Date: 10/12/21 Time: 23:50 PTT Result:: 65.5 Infusion Rate:: RATE CONTINUED AT 1150 UNITS/HR (23 ML/HR) Dose Monitor 4 Date: 10/13/21 Time: 04:15 PTT Result:: 36.6 Infusion Rate:: INCREASED RATE TO 1350 UNITS/HR (27 ML/HR) Dose Monitor 5 Date: 10/13/21 Time: 08:00 PTT Result:: 98.4 Infusion Rate:: DECREASED RATE TO 1200 UNITS/HR (24 ML/HR) Dose Monitor 6 Date: 10/13/21 Time: 13:05 PTT Result:: 63.5 Infusion Rate:: 25 ML/HR (1250 UNITS/HR) Dose Monitor 7 Date: 10/13/21 Time: 18:05 PTT Result:: 43.9 Infusion Rate:: RATE WAS INCREASED TO 28 ML/HR (1400 UNITS/HR). HEPARIN 3000 UNIT BOLUS GIVEN. Dose Monitor 8 Date: 10/15/87 Time: 01:38 PTT Result:: 64.6 Infusion Rate:: CONTINUED 28 ML/HR (1400 UNITS/HR) Dose Monitor 9 Date: 10/14/21 Time: 08:00 PTT Result:: 66.0 Infusion Rate:: CONTINUED HEPARIN RATE AT 28 ML/HR (1400 UNITS/HR) - Core Measures Is INR > or = 2 at discharge?: No Most Recent Labs:: Laboratory Results - last 24 hr 10/12/21 14:05: WBC 11.7 H, RBC 4.65, Hgb 13.7 L, Hct 42.9, MCV 92.2, MCH 29.4, MCHC 31.9, RDW 13.8, Plt Count 349, MPV 9.3, Neut % (Auto) 76.0, Lymph % (Auto) 15.1, [place] % (Auto) 6.1, Eos % (Auto) 1.9, Baso % (Auto) 1.0, Neut # (Auto) 8.9 H, Lymph # (Auto) 1.8, [place] # (Auto) 0.7, Eos # (Auto) 0.2, Baso # (Auto) 0.1 10/12/21 14:05: Sodium 137, Potassium 5.2 H, Chloride 99, Carbon Dioxide 29, Anion Gap 14.2, BUN 14, Creatinine 0.90, Estimated Creat Clear 107, Estimated GFR 90, Est GFR ( Amer) 109, Glucose 131 H, Calcium 8.7, Total Bilirubin 0.5, AST 64 H, ALT 58, Alkaline Phosphatase 204 H, Total Protein 8.0, Albumin 4.2, Globulin 3.8 H, Albumin/Globulin Ratio 1.1 10/12/21 14:05: ESR 32 H 10/12/21 14:05: C-Reactive Protein 46.1 H 10/12/21 14:05: Procalcitonin 0.081 10/12/21 14:05: Lipase 33 10/12/21 14:05: Troponin I < 0.01 10/12/21 14:05: PT 10.1, INR 0.89 L 10/12/21 14:05: APTT 28.0 10/12/21 14:55: Lactate 1.0 10/12/21 14:55: SARS-CoV-2 (PCR) Not detected, Influenza A Untype (PCR) Not detected, Influenza Type B (PCR) Not detected 10/12/21 15:20: Urine Color Yellow, Urine Appearance Clear, Urine pH 8.0, Ur Specific [place] 1.010, Urine Protein Negative, Urine Glucose (UA) Negative, Urine Ketones Negative, Urine Blood Negative, Urine Nitrate Negative, Urine Bilirubin Negative, Urine Urobilinogen 0.2, Ur Leukocyte Esterase Negative, Urine RBC None, Urine WBC Occasional, Ur Squamous Epith Cells Occasional, Urine Bacteria Trace 10/12/21 15:20: Urine Opiates Screen Negative, Urine Methadone Screen Negative, Ur Barbituates Screen Negative, Ur Phencyclidine Scrn Negative, Ur Amphetamines Screen Negative, U Benzodiazepines Scrn Positive H, Urine Co
--- NOTE | 2021-10-13 13:15 | PC.NURSE ---
Recvd critical lab APTT 63.5; pharmacy notified ([facility]) and recvd v.o. for Heparin drip to 25mL/hr (1250 units)
[2021-10-13 13:44] LABS: PTT Heparin (inpatient only) 63.5 Seconds (23.6-34.0)
[2021-10-13 15:33] VITALS: BP 110/67; PULSE 52; RESP 16; TEMP 36.7; O2SAT 97
[2021-10-13 18:23] LABS: PTT Heparin (inpatient only) 43.9 Seconds (23.6-34.0)
--- NOTE | 2021-10-13 18:24 | PC.NURSE ---
Patient VSS, denies SOA, c/o of pain in right back side with pain relief from Tordol and Flexeril orders on APR. Has shown no s/s of acute distress, bed at lowest level for safety, call light in reach;
--- NOTE | 2021-10-13 19:38 | PC.NURSE ---
Reported APTT 43.9 to Chirag at night watch. New orders received per APR.
[2021-10-13 19:58] VITALS: BP 113/69; PULSE 56; RESP 16; TEMP 36.8; O2SAT 93
[2021-10-14 01:51] LABS: PTT Heparin (inpatient only) 64.6 Seconds (23.6-34.0)
--- NOTE | 2021-10-14 02:05 | PC.NURSE ---
Reported APTT 64.6 to Dee Dee at Night watch, no change to drip at this time.
[2021-10-14 04:00] VITALS: BP 116/65; PULSE 55; RESP 16; TEMP 37.2; O2SAT 93
--- NOTE | 2021-10-14 04:57 | PC.NURSE ---
Pt has rested well tonight. A/O x3. Pt reported right sided pain x1, medicated per MAR with relief. Pt ambulates to the bathroom independently. Heparin infusing in the #20 R A/C IV site. Pt has required no oxygen throughout shift. Lung sounds remain clear bilaterally.
[2021-10-14 05:28] VITALS: BMI 23.6
[2021-10-14 06:17] LABS: Basophils # 0.1 K/mm3 (0-0.2); Basophils % 0.4 % (0.1-2.0); Eosinophils # 0.2 K/mm3 (0.0-0.4); Eosinophils % 1.9 % (0.1-12.0); Hematocrit 36.2 % (42.0-52.0); Hemoglobin 11.6 g/dL (14.1-18.0); Lymphocytes # 2.2 K/mm3 (0.7-4.5); Lymphocytes % 18.6 % (10-50); Mean Corpuscular Hemoglobin 30.2 pg (27.0-31.2); Mean Corpuscular Volume 94.4 fl (80-94); Mean Platelet Volume 11.4 fl (7.4-10.4); Monocytes # 1.1 K/mm3 (0.1-1.0); Monocytes % 9.2 % (1.7-9.3); Neutrophils # 8.2 K/mm3 (1.8-7.8); Neutrophils % 69.7 % (37.0-80.0); Platelet Count 324 K/mm3 (142-424); Red Blood Count 3.84 M/mm3 (4.60-6.20); Red Cell Distribution Width 13.6 % (11.5-17.5); White Blood Count 11.7 K/mm3 (4.8-10.8)
[2021-10-14 06:22] LABS: Alanine Aminotransferase 43 U/L (12-78); Albumin Level 3.5 g/dl (3.5-5.0); Alkaline Phosphatase 165 U/L (38-126); Anion Gap 10.5 mEq/L (5-15); Aspartate Amino Transferase 31 U/L (17-59); Bilirubin,Total 0.3 mg/dl (0.2-1.3); Blood Urea Nitrogen 19 mg/dl (9-20); Calcium 8.8 mg/dl (8.4-10.2); Carbon Dioxide 27 mmol/L (22.0-30.0); Chloride 102 mmol/L (98-107); Creatinine Clearance Estimated 110 mL/min (50-200); Estimated Glomerular Filt Rate 90 ml/min (>60); GFR (African American) 109 ML/MIN (>60); Globulin 3.4 g/dL (1.3-3.2); Glucose 118 mg/dl (74-100); Potassium 3.5 mmoL/L (3.5-5.1); Sodium 136 mmol/L (136-145); Total Protein,Serum 6.9 g/dl (6.3-8.2)
[2021-10-14 07:44] VITALS: BP 119/62; PULSE 60; RESP 17; TEMP 36.8; O2SAT 96
[2021-10-14 08:00] VITALS: O2SAT 96
--- NOTE | 2021-10-14 08:34 | HMH.DCSUM ---
General - General Admission date:: 10/12/21 Discharge date: 10/14/21 HPI HPI: 45-year-old white male with long history of tobacco use disorder, inhalation drug use, spastic diplegia cerebral palsy and recent 2 to 3-week history of significant immobility and bedbound status secondary to a variety of nonspecific illnesses, came to the emergency department this afternoon with a chief complaint of rib pain and splinting chest pain when he took a deep breath in his right lung. He thought initially it was shoulder pain from a previous history of rotator cuff pathology, but felt much worse, and in the emergency department he was found to have significant pulmonary emboli in the right lower and middle lung britt, some obstructing. Did have some backup in the IVC of contrast but no evidence of right ventricular filling or dysfunction. Placed on heparin drip and transitioned up to the floor for further evaluation. Patient specifically denies IV drug use, or inhalation snorting of anything in the past week or so. Patient notes that he has been a couch potato over the past 2 to 3 weeks with a variety of sinus infections, stomach complaints and states that he is not really moved around a lot in the past 2 or 3 weeks. He also has limited mobility because of a history of spastic diplegia from CP in his calves. Hospital Course Hospital Course: Patient was admitted, placed on heparin drip because of the size and obstructing nature of his pulmonary emboli. Fortunately, he remained hemodynamically stable throughout his hospital stay and CT scan showed no evidence of right heart strain and clinically he had no evidence of pulmonary edema. Tolerated medication well. Did receive Toradol and Flexeril for right sided splinting chest pain which seem to help him a great deal. This morning had echo which showed normal cardiac function and no evidence of RV dysfunction. Plan okay to discharge home on Xarelto today. We will initiate a starter pack and I gave him verbal instructions on how to take this. Toradol for chest pain will be prescribed. He will follow-up with his regular physicians in [place] in the next week. Objective Vital signs: Temp Pulse Resp BP Pulse Ox 98.3 F 60 17 119/62 96 10/14/21 07:44 10/14/21 07:44 10/14/21 07:44 10/14/21 07:44 10/14/21 07:44 no acute distress - *Routine HEENT Exam Head: Present: normocephalic Eye: Present: EOMI, PERRL ENT: Present: mucous membranes moist - *Routine Neck Exam Present: supple - *Routine Respiratory Exam Present: CTA bilaterally - *Routine Cardiovascular Exam Present: RRR - *Routine Abdominal Exam Present: soft, normoactive bowel sounds. Absent: tenderness - *Routine Extremities Exam Absent: cyanosis, clubbing, edema Comments: Calf atrophy and slight limitation of range of motion as previously noted - *Routine Skin Exam Present: warm. Absent: rash - Detailed Eye Exam Eyelids: Bilateral normal inspection Results Labs on day of discharge: Labs from last 24 hours 10/14/21 10/14/21 10/14/21 05:42 05:42 01:38 WBC 11.7 H RBC 3.84 L Hgb 11.6 L Hct 36.2 L MCV 94.4 H MCH 30.2 MCHC 32.0 RDW 13.6 Plt Count 324 MPV 11.4 H Neut % (Auto) 69.7 Lymph % (Auto) 18.6 [place] % (Auto) 9.2 Eos % (Auto) 1.9 Baso % (Auto) 0.4 Neut # (Auto) 8.2 H Lymph # (Auto) 2.2 [place] # (Auto) 1.1 H Eos # (Auto) 0.2 Baso # (Auto) 0.1 APTT 64.6 H* Sodium 136 Potassium 3.5 D Chloride 102 Carbon Dioxide 27 Anion Gap 10.5 BUN 19 D Creatinine 0.90 Estimated Creat Clear 110 Estimated GFR 90 Est GFR ( Amer) 109 Glucose 118 H Calcium 8.8 Total Bilirubin 0.3 AST 31 D ALT 43 Alkaline Phosphatase 165 H Total Protein 6.9 Albumin 3.5 Globulin 3.4 H Albumin/Globulin Ratio 1.0 L 10/13/21 10/13/21 10/13/21 18:05 13:05
--- NOTE | 2021-10-14 09:05 | PC.NURSE ---
spoke with . stated to give xarelto 15mg po before discharge and turn heparin drip off.
--- NOTE | 2021-10-14 10:34 | PC.NURSE ---
discharge pending patient waiting on ride
--- NOTE | 2021-10-15 15:55 | CARE MANAGER ---
Spoke with patient for post-discharge phone interview. She states that patient is doing well and has no complaints.
[2021-10-19 19:12] LABS: Hep A Ab, IgM Negative; Hepatitis B Core Antibody IgM Negative; Hepatitis B Surface Antigen Negative; Hepatitis C Antibody <0.1
== END 2021-10-14 11:30 | disposition home or self-care (01) | DRG 176 ==
LOC: ER 16:15 → 2ND 16:59
PROVIDERS: Internal Medicine; Admitting Provider Internal Medicine Adolescent Medicine; Emergency Provider Emergency Medicine; PCP Pediatrics; Visit Provider Internal Medicine Adolescent Medicine
DX: I26.99 Other pulmonary embolism without acute cor pulmonale (principal); G80.1 Spastic diplegic cerebral palsy; F19.20 Other psychoactive substance dependence, uncomplicated; I10 Essential (primary) hypertension; F17.210 Nicotine dependence, cigarettes, uncomplicated
CPT/HCPCS: 36415; 71046; 71275; 74177; 80053; 80074; 80305; 81001; 83605; 83690; 84145; 84484; 85025; 85610; 85651; 85730; 86140; 87040; 93005; 93306; 99291; C9803; Q9967; U0003; U0005

== ENCOUNTER 2022-02-26 14:21 | Inpatient (IN) | payer MEDICAID, SELFPAY ==
[2022-02-26] VITALS (7 sets, daily range): BP systolic 163–192; BP diastolic 72–95; PULSE 50–72; RESP 16–18; TEMP 36.6–36.9; O2SAT 92–96; BMI 24.3
--- NOTE | 2022-02-26 15:01 | CT_ITS ---
PROCEDURE INFORMATION: Exam: CT Abdomen And Pelvis With Contrast Exam date and time: 02/26/2022 4:27 PM Age: 46 years old Clinical indication: Abdominal pain; Generalized; Additional info: Pain, intractable vomiting TECHNIQUE: Imaging protocol: Computed tomography of the abdomen and pelvis with contrast. Radiation optimization: All CT scans at this facility use at least one of these dose optimization techniques: automated exposure control; mA and/or kV adjustment per patient size (includes targeted exams where dose is matched to clinical indication); or iterative reconstruction. Contrast material: ISOVUE; Contrast volume: 70 ml; Contrast route: IV; COMPARISON: CT ABDOMEN PELVIS W CON 10/12/2021 3:02 PM FINDINGS: Lungs: Atelectasis and pleuroparenchymal scarring at the lung bases. Liver: Normal. No mass. Gallbladder and bile ducts: Cholecystectomy. Mild biliary ectasia. Pancreas: Normal. No ductal dilation. Spleen: Normal. No splenomegaly. Adrenal glands: Normal. No mass. Kidneys and ureters: Normal. No hydronephrosis. Stomach and bowel: No diverticulitis. No bowel obstruction or evidence of appendicitis. Appendix: Normal appendix. Intraperitoneal space: Unremarkable. No free air. No significant fluid collection. Vasculature: Limited atherosclerosis. Lymph nodes: Unremarkable. No enlarged lymph nodes. Urinary bladder: Unremarkable as visualized. Reproductive: Unremarkable as visualized. Bones/joints: Unremarkable. No acute fracture. Soft tissues: Unremarkable. Other findings: No other acute pathology seen. As above. IMPRESSION: 1. No diverticulitis. No bowel obstruction or evidence of appendicitis. 2. No other acute pathology seen. As above.
--- NOTE | 2022-02-26 15:01 | CT_ITS ---
PROCEDURE INFORMATION: Exam: CTA Chest With Contrast Exam date and time: 02/26/2022 4:27 PM Age: 46 years old Clinical indication: Other: Chest pain; Additional info: Pain, SOA, h/o blood clot TECHNIQUE: Imaging protocol: Computed tomographic angiography of the chest with contrast. 3D rendering (Not supervised by radiologist): MIP and/or 3D reconstructed images were created by the technologist. Radiation optimization: All CT scans at this facility use at least one of these dose optimization techniques: automated exposure control; mA and/or kV adjustment per patient size (includes targeted exams where dose is matched to clinical indication); or iterative reconstruction. Contrast material: ISOVUE; Contrast volume: 70 ml; Contrast route: INTRAVENOUS (IV); COMPARISON: CT ANGIO CHEST PE PROTOCOL 10/12/2021 3:02 PM FINDINGS: Pulmonary arteries: No pulmonary embolus. No dissection or aneurysm in the chest. Aorta: Unremarkable. No aortic aneurysm. No aortic dissection. Lungs: There is a new cluster of nodules in the superior segment of the right lower lobe majority of which are less than 4 mm in size with a more confluent 7 mm area. An inflammatory or infectious etiology is expected. Atelectasis and minimal patchy areas of consolidation elsewhere. Pleural spaces: Unremarkable. No pneumothorax. No pleural effusion. Heart: Unremarkable. No cardiomegaly. No pericardial effusion. Coronary arteries: Minimal coronary artery calcifications. Lymph nodes: Unremarkable. No enlarged lymph nodes. Bones/joints: Unremarkable. No acute fracture. Soft tissues: Unremarkable. IMPRESSION: 1. No pulmonary embolus. No dissection or aneurysm in the chest. 2. There is a new cluster of nodules in the superior segment of the right lower lobe majority of which are less than 4 mm in size with a more confluent 7 mm area. An inflammatory or infectious etiology is expected. Atelectasis and minimal patchy areas of consolidation elsewhere.
--- NOTE | 2022-02-26 15:49 | HMH.EDGENADL ---
Discharge Plan Disposition Patient Disposition: Admitted As Inpatient Condition: Good Clinical Impressions Clinical Impression: Influenza A, Elevated troponin, Transaminitis Discharge ED Provider: Cara Brady General Adult HPI General Chief complaint: Nausea/Vomiting/Diarrhea Stated complaint: vomiting, face possibly swollen Time Seen by Provider: 02/26/22 14:51 Mode of Arrival: Ambulatory Source of Information: Patient Limitations: No Limitations Description of Symptoms (Recalled from ER Triage Doc. by RN): pt states he began having nausea last night, and this morning his face and eyes are swollen and red in color. pt dry heaving when entering the room. pt c/o back pain and lung pain. History of Present Illness HPI narrative: This patient is a 46-year-old male presenting to the emergency department for evaluation of nausea and intractable vomiting that started last night. Nothing seems to make his symptoms better or worse. He has been dry heaving, as there is nothing left in the stomach to throw up. He currently complains of back pain and leg pain. Of note, his significant other notes that he has a history of pulmonary embolus for which she is supposed to be on anticoagulation, however he stopped taking that 2 days ago. No recent fevers, chills, abdominal pain, change in bowel movements, rashes, calf pain, or leg swelling. They do note some swelling around his eyes and redness of his eyes that started after he had been vomiting multiple times. No concerns for allergic reaction, such as itching, oral pharyngeal swelling, or other concerns. Related Data Home Medications Medication Instructions Recorded Confirmed amoxicillin 875 mg-potassium 1 tab PO BID Sinus infection 10/12/21 10/12/21 clavulanate 125 mg tablet hydrochlorothiazide 12.5 mg tablet 12.5 mg PO DAILY fluid 10/12/21 10/12/21 irbesartan 300 mg tablet 300 mg PO HS htn 10/12/21 10/12/21 Previous Rx's Medication Instructions Recorded ketorolac 10 mg tablet 10 mg PO Q6HP PRN mod pain #15 tabs 10/14/21 rivaroxaban 15 mg (42)-20 mg (9) 1 tab PO UD DOSE PK ##1 10/14/21 tablets in a starter pack Allergies Allergy/AdvReac Type Severity Reaction Status Date / Time buprenorphine [From Suboxone] Allergy Verified 02/26/22 15:18 meperidine [From Demerol] Allergy Verified 02/26/22 15:18 naloxone [From Suboxone] Allergy Verified 02/26/22 15:18 [facility] Disclaimer: The information contained in this section may have been updated after the patient was seen, as this information can be updated by other users. Social History Smoking Status: Current every day smoker tobacco type: cigarettes packs per day: 1 alcohol intake: never substance use type: marijuana, heroin and opiates current occupational status: employed Travel in the last 8 weeks: None household members: spouse housing: house current occupation: on/off current occupational exposures/hazards: No caffeine: Yes ROS Obtained: Yes All systems reviewed & no additional complaints except as documented 14 point review of systems obtained and negative except as mentioned in HPI. Physical Exam General General appearance: alert Comment: Actively dry heaving Head Head exam: atraumatic and normocephalic Eye Eye exam: Present PERRL, EOMI and conjunctival injection; Absent conjunctival redness, discharge, periorbital swelling or periorbital tenderness ENT ENT exam: Present normal exam and normal oropharynx Neck Neck exam: Present normal inspection and full ROM Chest Chest inspection: Present normal inspection and symmetric chest wall rise; Absent tenderness Respiratory Respiratory exam: Present normal lung sounds bilaterally; Absent respiratory distress, wheezes or stridor Cardiovascular Cardiovascular exam: Present regular rate and normal rhythm Abdominal Exam Abdominal exam: Present soft; Absent distention, tenderness
--- NOTE | 2022-02-26 15:51 | ECG_ITS ---
APPROVED REPORT Exam: Resting ECG HR:50 bpm ECG Measurements Heart Rate 50 AXES OH 156 P 66 QRSd 91 QRS 69 QT 483 T 60 QTc 456 Conclusion SINUS BRADYCARDIA WITH MARKED SINUS ARRHYTHMIA BORDERLINE ECG UNCONFIRMED REPORT Electronically signed by : Bennett Ackerman MD 02/27/2022 08:09:52
[2022-02-26 15:54] LABS: Basophils % 0.5 % (0.1-2.0); Eosinophils % 0.4 % (0.1-12.0); Hematocrit 38.6 % (42.0-52.0); Hemoglobin 12.9 g/dL (14.1-18.0); Lymphocytes # 0.3 K/mm3 (0.7-4.5); Lymphocytes % 7.2 % (10-50); Mean Corpuscular HGB Conc 33.5 g/dL (31.8-35.4); Mean Corpuscular Hemoglobin 29.6 pg (27.0-31.2); Mean Corpuscular Volume 88.6 fl (80-94); Mean Platelet Volume 9.1 fl (7.4-10.4); Monocytes # 0.5 K/mm3 (0.1-1.0); Monocytes % 11.9 % (1.7-9.3); Neutrophils # 3.3 K/mm3 (1.8-7.8); Neutrophils % 80.1 % (37.0-80.0); Platelet Count 252 K/mm3 (142-424); Red Blood Count 4.36 M/mm3 (4.60-6.20); Red Cell Distribution Width 14.1 % (11.5-17.5); White Blood Count 4.1 K/mm3 (4.8-10.8)
[2022-02-26 15:58] LABS: Chloride 97 mmol/L (98-107); Potassium 4.3 mmoL/L (3.5-5.1); Sodium 136 mmol/L (136-145)
[2022-02-26 16:00] LABS: Blood Urea Nitrogen 15 mg/dl (9-20); Creatinine Clearance Estimated 123 mL/min (50-200); Estimated Glomerular Filt Rate 103 ml/min (>60); GFR (African American) 125 ML/MIN (>60)
[2022-02-26 16:01] LABS: Alanine Aminotransferase 140 U/L (12-78); Albumin Level 4.7 g/dl (3.5-5.0); Albumin/Globulin Ratio 1.3 (1.1-1.8); Alkaline Phosphatase 145 U/L (38-126); Anion Gap 16.3 mEq/L (5-15); Aspartate Amino Transferase 120 U/L (17-59); Bilirubin,Total 0.5 mg/dl (0.2-1.3); Calcium 8.7 mg/dl (8.4-10.2); Carbon Dioxide 27 mmol/L (22.0-30.0); Globulin 3.7 g/dL (1.3-3.2); Glucose 112 mg/dl (74-100); Lipase 39 U/L (23-300); Total Protein,Serum 8.4 g/dl (6.3-8.2)
[2022-02-26 16:11] LABS: Troponin I 0.05 ng/ml (0.00-0.034)
--- NOTE | 2022-02-26 16:36 | ECG_ITS ---
APPROVED REPORT Exam: Resting ECG HR:63 bpm ECG Measurements Heart Rate 63 AXES AR 160 P 69 QRSd 87 QRS 74 QT 451 T 62 QTc 459 Conclusion SINUS RHYTHM WITH OCCASIONAL SUPRAVENTRICULAR PREMATURE COMPLEXES BORDERLINE ECG UNCONFIRMED REPORT Electronically signed by : Bennett Ackerman MD 02/27/2022 08:08:18
--- NOTE | 2022-02-26 16:39 | PC.NURSE ---
Repeat EKG done per ER MD request due to elevated troponin
--- NOTE | 2022-02-26 16:47 | PC.NURSE ---
JANIS Tran rounding on patient, she was given a warm blanket. Patient requesting something to help with his DILLON and nausea. REE Humphrey aware.
[2022-02-26 16:52] LABS: Coronavirus 19, PCR Not Detected (NotDetected); Influenza B, PCR Not Detected (NotDetected)
--- NOTE | 2022-02-26 16:54 | PC.NURSE ---
ER MD at speaking with patient regarding update on POC
[2022-02-26 17:46] LABS: C-Reactive Protein 42.1 mg/L (0-4)
[2022-02-26 18:06] LABS: Erythrocyte Sedimentation Rate 1 mm/hr (0-15)
--- NOTE | 2022-02-26 18:18 | PC.NURSE ---
GENARO KIM speaking with Dr. Crowell at this time
[2022-02-26 18:26] LABS: Influenza A, PCR Detected (NotDetected)
--- NOTE | 2022-02-26 18:35 | PC.NURSE ---
pt to restroom via WC. Pt unhooked from LR at this time
--- NOTE | 2022-02-26 18:43 | PC.NURSE ---
called house officer for admission
--- NOTE | 2022-02-26 18:58 | PC.NURSE ---
lab called to collect lactic
[2022-02-26 19:33] LABS: Lactic Acid 1.4 mmol/L (0.7-2.1)
--- NOTE | 2022-02-26 19:41 | PC.NURSE ---
PT complains of nausea. RN and MD notified.
--- NOTE | 2022-02-26 20:06 | PC.NURSE ---
pt in bed sleeping, nothing needed at this time
--- NOTE | 2022-02-26 20:08 | EXP.HP ---
History of Present Illness *Admission Date: 02/26/22 *Reason for visit:: Nausea, Vomiting, Chest Pain and Back Pain *History of present illness: Mr. Dela Cruz is a 46-year-old male with a past medical history of PE, was on anticoagulation, reports took 5 months and stopped, HTN and Chronic Tobacco Use. He presents to [facility] through the ER due to an acute onset of nausea, vomiting, back pain, chest pain and shortness of air that came on all the sudden the night prior to presentation. He denies known similar sick contacts and denies the use of otc medications for his symptoms. In the ER, Troponin was elevated at 0.05, EKG showed NSR with PVC's, rate 63, no ST segment elevation or depression. Flu testing was positive, AST and ALT were elevated at 120 and 140 with normal bilirubin. Lipase was normal at 39. WBC was decreased at 4.1. CTA of the chest showed no definite PE with some lung nodules concerning for infectious or inflammatory etiology, CT of the abdomen and pelvis showed no acute intra abdominal abnormalities. The patient was admitted with initial impression: NSTEMI, Influenza and Transaminitis. Cardiology will be consulted to see the patient. The patient will be given Tamiflu, Antiemetics, iv fluids. FLP will be checked in the am. The plan of care was discussed with the patient and at bedside. Both verbalized understanding and agreement with the plan of care. [facility] Disclaimer: The information contained in this section may have been updated after the patient was seen, as this information can be updated by other users. Medical History Hypertension Pulmonary embolism Tobacco use Surgical History (Updated 02/26/22 @ 20:18 by Percy Boggs DNP) History of cholecystectomy Social History Smoking Status: Current every day smoker tobacco type: cigarettes packs per day: 1 alcohol intake: never substance use type: marijuana, heroin and opiates current occupational status: employed Travel in the last 8 weeks: None household members: spouse housing: house current occupation: on/off current occupational exposures/hazards: No caffeine: Yes Review of Systems Review of Systems Review of systems:: pertinent systems reviewed and negative unless documented below Constitutional Constitutional: Reports system reviewed and no additional complaints, except as documented Eyes Eyes: Reports system reviewed and no additional complaints, except as documented ENT Ears, Nose, Mouth, and Throat: Reports system reviewed and no additional complaints, except as documented *Cardiovascular Cardiovascular: Reports chest pain and Reports dyspnea *Respiratory Respiratory: Reports dyspnea *Gastrointestinal Gastrointestinal: Reports abdominal pain, Reports nausea and Reports vomiting *Genitourinary Genitourinary: Reports system reviewed and no additional complaints, except as documented *Musculoskeletal Musculoskeletal: Reports back pain and Reports myalgias Integumentary/Breasts Skin/Breast: Reports system reviewed and no additional complaints, except as documented *Neurologic Neurologic: Reports system reviewed and no additional complaints, except as documented Psychiatric Psychiatric: Reports system reviewed and no additional complaints, except as documented Endocrine Endocrine: Reports system reviewed and no additional complaints, except as documented Hematologic/Lymphatic Hematologic/Lymphatic: Reports system reviewed and no additional complaints, except as documented Allergic/Immunologic Allergic/Immunologic: Reports system reviewed and no additional complaints, except as documented Meds Home Medications and Allergies Home Medications Medication Instructions Recorded Confirmed Type amoxicillin 875 mg-potassium 1 tab PO BID Sinus infection 10/12/21 10/12/21 History clavulanate 125 mg tablet hydrochlorothiazide 12.5 mg tablet 12.5 m
--- NOTE | 2022-02-26 20:32 | PC.NURSE ---
s/w hospitalist regarding troponin orders at lab's request. Percy Y would like troponin to be completed in the morning with AM labs. Lab notified. They called back to asked ER to re-time lab orders. This was completed.
[2022-02-26 21:24] LABS: Acetaminophen < 10 ug/ml (10-30)
[2022-02-26 21:36] LABS: Troponin I 0.06 ng/ml (0.00-0.034)
[2022-02-26 22:32] LABS: Troponin I 0.05 ng/ml (0.00-0.034)
[2022-02-27] VITALS (12 sets, daily range): BP systolic 132–214; BP diastolic 82–118; PULSE 44–98; RESP 14–20; TEMP 36.6–36.9; O2SAT 90–97; BMI 24.3
--- NOTE | 2022-02-27 04:11 | PC.NURSE ---
NO ACUTE CHANGES SINCE ARRIVING TO THE FLOOR. PT HAS C/O NAUSEA X2 AND BACK PAIN X1. PRN MEDICATION GIVEN WITH ADEQUATE RELIEF. AMBULATING TO THE BATHROOM INDEPENDENTLY. BP HAS BEEN ELEVATED THIS SHIFT. STATED THAT PT HAS NOT TAKEN ANY OF HIS MEDICATION. PT HAS BEEN SINUS JENNYFER/ARRHYTHMIA ON TELE. NO C/O CP OR SOB. OTHER VITAL SIGNS STABLE.
--- NOTE | 2022-02-27 04:58 | PC.NURSE ---
PT STATES THAT HE HAS HAD LITTLE RELIEF FROM NAUSEA THIS SHIFT
--- NOTE | 2022-02-27 06:30 | CA_ITS ---
APPROVED REPORT EXAM: Comprehensive 2D, Doppler, and color-flow Echocardiogram Refrigerator Car Icer: Luz Marina Alegre RVT Ht: 5 ft 10 in Wt: 170lbs BSA: 1.95 BP: 163/72 mmHg Indications: ELEVATED TROP,FLU A,SMOKER,HTN 2D Dimensions LVOT 2.05 cm (M/F) 1.5-2.5 LA Volume 35.30 mL LA Volume Index 18.10 mL/m2 (M/F) 16-34 M-Mode Dimensions RVDd 2.78 cm (0.9-2.6) LA Diam 3.28 cm (1.9-4.0) LVDd 4.71 cm (3.5-5.7) Ao Diam 3.66 cm (2.0-3.7) LVDs 3.32 cm (3.5-5.7) IVSd 0.61 cm (0.6-1.1) PWd 1.03 cm (0.6-1.1) EF (Teich) 56.50% FS 29.50% EDV (Teich) 102.90 mL TAPSE 3.71 (<1.7) ESV (Teich) 44.80 mL LV Diastology E Decel Time 207.00 (160-240 msec) E/A Ratio 2.9 MED E' 6.80 (< 7 cm/sec) E'/MED E' Ratio 13.59 (>14) LAT E' 9.60 (<10 cm/sec) E/LAT E' Ratio 9.63 (>14) Aortic Valve AO Peak GR. 5.80 mmHg Mitral Valve MV E Max Kiel. 92.00 (40-130 cm/s) MV A Velocity 32.00 (40-130 cm/s) E/A Ratio 2.85 MV Decel. Time 207.00 (160-240 ms) MV PHT 61.00 ms Pulmonary Valve PV Peak Velocity 94.00 (50-150 cm/s) Tricuspid Valve TR P. Velocity 301.00 cm/s RAP Estimate 10.00 mmHg RVSP 46.20 mmHg Left Ventricle Left atrium normal size, left ventricle normal size, estimated ejection fraction 55% with no regional wall motion abnormality, diastolic parameters are within normal range. Right Ventricle Right atrium and right ventricle are normal size and contractility. Aortic Valve Aortic valve is grossly normal, there is no aortic stenosis or aortic insufficiency. Mitral Valve Mitral valve grossly normal, there is trace mitral regurgitation. Tricuspid Valve Tricuspid valve grossly normal, there is trace tricuspid regurgitation, tricuspid regurgitation jet velocity is inadequate for calculation of the right ventricular systolic pressure. Pulmonic Valve Pulmonic valve is poorly visualized. Great Vessels Aortic root is normal size. Inferior vena cava is normal size with normal inspiratory collapse. Pericardium No significant pericardial effusion noted. Conclusion 1. Normal left ventricular size, estimated ejection fraction 55% with no regional wall motion abnormality, diastolic parameters are within normal range. 2. Trace mitral and tricuspid regurgitation. 3. No significant pericardial effusion. 4. Inferior vena cava is normal size with normal inspiratory collapse. Electronically signed by : Surya Palma MD 02/28/2022 14:54:32
[2022-02-27 07:24] LABS: Chol/HDL Ratio 4.4 (1-3.5); Cholesterol 196 mg/dl (140-200); HDL Cholesterol 45 mg/dl (40-60); Triglycerides 48 mg/dl (30-150); VLDL Cholesterol 10 mg/dL (0-40)
[2022-02-27 07:35] LABS: Direct LDL Cholesterol 101.72 mg/dL (100-129)
--- NOTE | 2022-02-27 07:41 | HMH.PHAINT1 ---
Pharmacy Intervention Comments: MEDICATION RECONCILIATION COMPLETED ON PATIENT USING EXTERNAL FILL HISTORY FROM PHARMACY. -SANGITA SIMONS, DILLOND
--- NOTE | 2022-02-27 11:22 | EXP.CARD.CON ---
History of Present Illness History of Present Illness Consult date: 02/27/22 Chief complaint: Nausea vomiting Additional Medical History:: Significant past medical history Bilateral PE?approximately 5 months ago status post cholecystectomy Hypertension Chronic tobacco use Spastic diplegic cerebral palsy History of present illness: 46-year-old white male with above past medical history presented to emergency department yesterday with acute onset of nausea, vomiting, back pain, chest pain and shortness of air x1 day. Of note, patient was diagnosed with bilateral PEs approximately 5 months ago status post cholecystectomy and was initially treated with Xarelto. Patient reports he stopped his Xarelto about a month ago. Initial ER troponin was elevated at 0.05 and has trended to 0.10, EKG showed normal sinus rhythm with PVCs at a rate of [address] segment elevation or depression. AST and ALT were elevated at 120 and 140 with a normal bilirubin. Lipase was normal at 39, WBCs was decreased at 4.1. A CTA of chest showed no definite PE with some lung nodules concerning for infectious or inflammatory etiology. CT of abdomen pelvis showed no acute intra-abdominal abnormalities noted. Patient did test positive for flu and was admitted for NSTEMI, influenza and transaminitis. Upon examination this a.m. patient denies chest pain reports his whole body hurts and continues to have nausea. [facility] Disclaimer: The information contained in this section may have been updated after the patient was seen, as this information can be updated by other users. Medical History Hypertension Pulmonary embolism Tobacco use Surgical History History of cholecystectomy Family History (Updated 02/26/22 @ 20:47 by Tierra Del [place] RN) Other Family history of GERD Family history of diabetes mellitus type II Family history of hyperlipidemia Family history of hypertension Family history of myocardial infarction Social History Smoking Status: Current every day smoker tobacco type: cigarettes packs per day: 1 alcohol intake: never substance use type: marijuana, heroin and opiates current occupational status: employed Travel in the last 8 weeks: None household members: spouse housing: house current occupation: on/off current occupational exposures/hazards: No caffeine: Yes Review of Systems Constitutional Constitutional: Reports fatigue and Reports weakness Comments: Body aches *Cardiovascular Cardiovascular: Reports chest pain *Respiratory Respiratory: Reports cough *Gastrointestinal Gastrointestinal: Reports nausea and Reports vomiting *Neurologic Neurologic: Reports system reviewed and no additional complaints, except as documented and Reports weakness Endocrine Endocrine: Reports fatigue Exam Data for Last 24 hours Vital signs and Labs for Last 24 Hours: Temp Pulse Resp BP Pulse Ox 97.8 F 50 L 18 158/85 H 97 02/27/22 08:00 02/27/22 08:00 02/27/22 08:00 02/27/22 08:00 02/27/22 08:00 Laboratory Results - last 24 hr 02/26/22 15:20: WBC 4.1 L, RBC 4.36 L, Hgb 12.9 L, Hct 38.6 L, MCV 88.6, MCH 29.6, MCHC 33.5, RDW 14.1, Plt Count 252, MPV 9.1, Neut % (Auto) 80.1 H, Lymph % (Auto) 7.2 L, [place] % (Auto) 11.9 H, Eos % (Auto) 0.4, Baso % (Auto) 0.5, Neut # (Auto) 3.3, Lymph # (Auto) 0.3 L, [place] # (Auto) 0.5, Eos # (Auto) 0.0, Baso # (Auto) 0.0 02/26/22 15:20: Sodium 136, Potassium 4.3, Chloride 97 L, Carbon Dioxide 27, Anion Gap 16.3 H, BUN 15, Creatinine 0.80, Estimated Creat Clear 123, Estimated GFR 103, Est GFR ( Amer) 125, Glucose 112 H, Calcium 8.7, Total Bilirubin 0.5, AST 120 H, ALT 140 H, Alkaline Phosphatase 145 H, Troponin I 0.05 H, Total Protein 8.4 H, Albumin 4.7, Globulin 3.7 H, Albumin/Globulin Ratio 1.3, Lipase 39 02/26/22 15:20: Troponin I Cancelled, C-Reactive Protein 42.1 H 02/26/22
[2022-02-27 12:36] LABS: Microscopic, Urine URINE MICROSCOPIC (MICROSCOPIC)
[2022-02-27 12:38] LABS: Appearance,Urine CLEAR (Clear); Bilirubin,Urine Negative (Negative); Blood, Urine TRACE-L (Negative); Color,Urine YELLOW (Yellow); Glucose,Urine (UA) Negative (Negative); Ketones,Urine 2+ (Negative); Leukocyte Esterase,Urine Negative (Negative); Nitrate,Urine Negative (Negative); Protein,Urine 2+ (Negative); Urobilinogen,Urine 0.2 EU/dl (0.2)
[2022-02-27 13:10] LABS: Squamous Epithelial Cell,Urine Occasional #/hpf (0-5); WBC,Urine Occasional #/hpf (0-3)
--- NOTE | 2022-02-27 14:18 | PC.NURSE ---
PT IS RESTING IN BED. ALERT AND ORIENTED X4. PT HAS COMPLAINED OF BACK/LEG PAIN THIS SHIFT. PT RECEIVED A ONE TIME DOSE OF MORPHINE THIS MORNING. TURNS AND REPOSITIONS SELF IN THE BED. PT HAS BEEN DRINKING OKAY BUT APPETITE HAS BEEN POOR. LUNG SOUNDS DIMINISHED. ABDOMEN SOFT/NON TENDER WITH ACTIVE BOWEL SOUNDS. WILL CONTINUE TO MONITOR.
--- NOTE | 2022-02-27 16:29 | PC.NURSE ---
RN aware of elevated bp
--- NOTE | 2022-02-27 17:12 | PC.NURSE ---
PT'S MANUAL BP THIS AFTERNOON WAS 214/118. PT IS COMPLAINING OF A HEADACHE. NOTIFIED RENÉ. NICARDIPINE DRIP,CMP AND TROPONIN ORDERED. DRIP STARTED AT 1700. BP AT 1715 187/108. REPORT HAND OFF TO RADHA PARDO RN.
--- NOTE | 2022-02-27 17:33 | PC.NURSE ---
Pt arrived to his Step down room at this time
[2022-02-27 18:16] LABS: Chloride 89 mmol/L (98-107); Potassium 3.3 mmoL/L (3.5-5.1); Sodium 130 mmol/L (136-145)
[2022-02-27 18:18] LABS: Blood Urea Nitrogen 15 mg/dl (9-20); Creatinine Clearance Estimated 141 mL/min (50-200); Estimated Glomerular Filt Rate 120 ml/min (>60); GFR (African American) 146 ML/MIN (>60)
[2022-02-27 18:19] LABS: Alanine Aminotransferase 116 U/L (12-78); Albumin Level 4.6 g/dl (3.5-5.0); Albumin/Globulin Ratio 1.2 (1.1-1.8); Alkaline Phosphatase 173 U/L (38-126); Anion Gap 16.3 mEq/L (5-15); Aspartate Amino Transferase 84 U/L (17-59); Bilirubin,Total 0.6 mg/dl (0.2-1.3); Calcium 8.5 mg/dl (8.4-10.2); Carbon Dioxide 28 mmol/L (22.0-30.0); Globulin 3.8 g/dL (1.3-3.2); Glucose 117 mg/dl (74-100); Total Protein,Serum 8.4 g/dl (6.3-8.2)
[2022-02-27 18:31] LABS: Troponin I 0.16 ng/ml (0.00-0.034)
--- NOTE | 2022-02-27 19:01 | EXP.ACUTE.PN ---
Subjective *Date: 02/27/22 *Time: 19:01 Interval history: No issues overnight. Still having pain primarily in his back. No shortness of breath, no chest pain. Medical Exam Vital signs and Labs for Last 24 Hours: Vital Signs Temp Pulse Pulse Pulse Resp BP BP 02/27/22 18:00 70 18 132/82 02/27/22 17:30 68 20 160/102 H 02/27/22 17:15 69 20 187/108 H 02/27/22 17:00 69 184/108 H 02/27/22 16:00 74 02/27/22 16:00 97.9 F 56 L 18 214/118 H 02/27/22 12:00 50 L 02/27/22 12:00 98.0 F 44 L 14 184/87 H 02/27/22 08:00 97.8 F 50 L 18 158/85 H 02/27/22 08:00 44 L 02/27/22 06:13 168/88 H 02/27/22 04:00 98.5 F 50 L 18 200/84 H 02/27/22 04:00 50 L 02/27/22 00:00 97.9 F 50 L 18 180/86 H 02/27/22 00:00 50 L 02/26/22 21:05 50 L 02/26/22 20:58 98.0 F 56 L 16 192/90 H 02/26/22 20:21 98 F 72 18 170/93 H 02/26/22 20:20 98 F 72 18 171/95 H Pulse Ox 02/27/22 18:00 96 02/27/22 17:30 92 L 02/27/22 17:15 90 L 02/27/22 17:00 02/27/22 16:00 02/27/22 16:00 94 L 02/27/22 12:00 02/27/22 12:00 97 02/27/22 08:00 97 02/27/22 08:00 02/27/22 06:13 02/27/22 04:00 96 02/27/22 04:00 02/27/22 00:00 95 02/27/22 00:00 02/26/22 21:05 02/26/22 20:58 95 02/26/22 20:21 02/26/22 20:20 95 Intake and Output 02/27/22 02/27/22 02/27/22 07:59 15:59 23:59 Intake Total 102 / 1021 Output Total 0 / 750 750 / 750 0 / 750 Balance 0 271 -750 / 271 1020 Intake: Intake, Total IV Amount 1020 / 1021 0.9 % Sodium Chloride 1,000 ml 1020 / 1021 @ 75 mls/hr IV .[id number] [facility] Rx# :[id number] Output: Output, Urine Amount 0 / 750 750 / 750 0 / 750 Other: Number of Unmeasured Voids 1 1 Weight 77 kg Patient Weight 02/27/22 23:59 Weight 77 kg Laboratory Results - last 24 hr 02/26/22 12:30: Urine Color Yellow, Urine Appearance Clear, Urine pH 7.0, Ur Specific [place] 1.020, Urine Protein 2+, Urine Glucose (UA) Negative, Urine Ketones 2+, Urine Blood Trace-l, Urine Nitrate Negative, Urine Bilirubin Negative, Urine Urobilinogen 0.2, Ur Leukocyte Esterase Negative, Urine RBC None, Urine WBC Occasional, Ur Squamous Epith Cells Occasional, Urine Bacteria None 02/26/22 19:13: Lactate 1.4 02/26/22 19:13: Troponin I 0.05 H 02/26/22 20:59: Troponin I 0.06 H 02/26/22 20:59: Acetaminophen < 10 L 02/27/22 05:30: Troponin I 0.10 H 02/27/22 05:30: Triglycerides 48, Cholesterol 196, LDL Cholesterol Direct 101.72, VLDL Cholesterol 10, HDL Cholesterol 45, Cholesterol/HDL Ratio 4.4 H 02/27/22 17:53: Sodium 130 L, Potassium 3.3 L D, Chloride 89 L, Carbon Dioxide 28, Anion Gap 16.3 H, BUN 15, Creatinine 0.70, Estimated Creat Clear 141, Estimated GFR 120, Est GFR ( Amer) 146, Glucose 117 H, Calcium 8.5, Total Bilirubin 0.6, AST 84 H D, ALT 116 H, Alkaline Phosphatase 173 H, Troponin I 0.16 H, Total Protein 8.4 H, Albumin 4.6, Globulin 3.8 H, Albumin/Globulin Ratio 1.2 I & O for Labs for Last 24 Hours: Intake & Output 02/24/22 02/25/22 02/26/22 02/27/22 23:59 23:59 23:59 23:59 Intake Total 1021 / 1021 Output Total 0 / 0 750 / 750 Balance 0 / 0 271 / 271 Weight 77.111 kg 77 kg Constitutional: Present mild distress and cooperative; Absent combative Head: Present atraumatic and normocephalic Neck: Present normal inspection and full ROM Respiratory: Present CTA bilaterally; Absent accessory muscle use Cardiac: Present Reg Rate and Rhythm and S1/S2 GI: Present soft; Absent tenderness Rectal (male): Present deferred (male): Present deferred Extremities: Present normal inspection; Absent edema Assessment and Plan *Assessment and plan (1) NSTEMI (non-ST elevated myocardial infarction): Status: Acute Category: Medical Code(s): I21.4 - Non-ST elevation (NSTEMI) myocardial infarction (2) Influenza: Status: Acut
--- NOTE | 2022-02-27 19:44 | PC.NURSE ---
reji drip turned off at 1930. bp was 119/66 at 1915.
--- NOTE | 2022-02-27 20:05 | PC.NURSE ---
CARDENE DRIP RESTARTED AT 2.5MG/HR. BP AT 1944 WAS 147/85.
--- NOTE | 2022-02-27 20:56 | PC.NURSE ---
CARDENE DRIP TURNED OFF AT THIS TIME. BP 115/84.
--- NOTE | 2022-02-27 22:51 | PC.NURSE ---
CARDENE DRIP RESTARTED AT THIS TIME AT 5MG/HR. BP WAS 169/106.
--- NOTE | 2022-02-27 23:38 | PC.NURSE ---
CARDENE DRIP TITRATED TO 2.5MG/HR AT THIS TIME. BP 115/80.
[2022-02-28] VITALS (7 sets, daily range): BP systolic 106–130; BP diastolic 63–78; PULSE 69–84; RESP 14–18; TEMP 36.9–37.1; O2SAT 90–94; BMI 24.1
--- NOTE | 2022-02-28 01:01 | PC.NURSE ---
bp 0045 166/91, increased cardene drip to 5mg/hr 0100-bp 124/78
--- NOTE | 2022-02-28 01:31 | PC.NURSE ---
Received report from REE [place] at this time
--- NOTE | 2022-02-28 02:19 | PC.NURSE ---
Decreased cardene gtt to 2.5mcg at this time. Current BP 100/62
[2022-02-28 06:18] LABS: Basophils # 0.1 K/mm3 (0-0.2); Basophils % 1.1 % (0.1-2.0); Eosinophils % 0.5 % (0.1-12.0); Hematocrit 46.3 % (42.0-52.0); Hemoglobin 15.5 g/dL (14.1-18.0); Lymphocytes # 0.7 K/mm3 (0.7-4.5); Lymphocytes % 13.6 % (10-50); Mean Corpuscular HGB Conc 33.5 g/dL (31.8-35.4); Mean Corpuscular Volume 86.6 fl (80-94); Mean Platelet Volume 9.7 fl (7.4-10.4); Monocytes # 0.6 K/mm3 (0.1-1.0); Monocytes % 11.8 % (1.7-9.3); Neutrophils # 3.7 K/mm3 (1.8-7.8); Platelet Count 255 K/mm3 (142-424); Red Blood Count 5.34 M/mm3 (4.60-6.20); Red Cell Distribution Width 13.8 % (11.5-17.5); White Blood Count 5.1 K/mm3 (4.8-10.8)
[2022-02-28 06:32] LABS: Chloride 91 mmol/L (98-107); Sodium 128 mmol/L (136-145)
[2022-02-28 06:33] LABS: Potassium 3.1 mmoL/L (3.5-5.1)
[2022-02-28 06:35] LABS: Alanine Aminotransferase 95 U/L (12-78); Albumin Level 4.3 g/dl (3.5-5.0); Albumin/Globulin Ratio 1.2 (1.1-1.8); Alkaline Phosphatase 160 U/L (38-126); Anion Gap 14.1 mEq/L (5-15); Aspartate Amino Transferase 65 U/L (17-59); Bilirubin,Total 0.5 mg/dl (0.2-1.3); Blood Urea Nitrogen 19 mg/dl (9-20); Calcium 8.2 mg/dl (8.4-10.2); Carbon Dioxide 26 mmol/L (22.0-30.0); Creatinine Clearance Estimated 163 mL/min (50-200); Estimated Glomerular Filt Rate 144 ml/min (>60); GFR (African American) 174 ML/MIN (>60); Globulin 3.6 g/dL (1.3-3.2); Glucose 102 mg/dl (74-100); Total Protein,Serum 7.9 g/dl (6.3-8.2)
--- NOTE | 2022-02-28 06:55 | PC.NURSE ---
Pt has rested fairly well t/o the night. C/o pain and was medicated per mar. No acute issues noted at this time. BP 115/70, Nicardipine gtt decreased to 2.5mg/hr at this time. VSS, no distress noted, will continue to monitor.
--- NOTE | 2022-02-28 08:57 | EXP.CARD.PN ---
Subjective Subjective Date: 02/28/22 Time: 08:00 Principal diagnosis: Influenza Interval history: Patient resting, off all drips. Blood pressure remained stable. Patient denies chest pain or shortness of breath only endorses body aches. Patient reports overall feeling much better than when he came into facility. A.m. labs reviewed Exam Data for Last 24 hours Vital signs and Labs for Last 24 Hours: Temp Pulse Resp BP Pulse Ox 98.6 F 76 16 112/63 93 L 02/28/22 04:00 02/28/22 08:00 02/28/22 08:00 02/28/22 08:00 02/28/22 08:00 Laboratory Results - last 24 hr 02/26/22 12:30: Urine Color Yellow, Urine Appearance Clear, Urine pH 7.0, Ur Specific [place] 1.020, Urine Protein 2+, Urine Glucose (UA) Negative, Urine Ketones 2+, Urine Blood Trace-l, Urine Nitrate Negative, Urine Bilirubin Negative, Urine Urobilinogen 0.2, Ur Leukocyte Esterase Negative, Urine RBC None, Urine WBC Occasional, Ur Squamous Epith Cells Occasional, Urine Bacteria None 02/27/22 17:53: Sodium 130 L, Potassium 3.3 L D, Chloride 89 L, Carbon Dioxide 28, Anion Gap 16.3 H, BUN 15, Creatinine 0.70, Estimated Creat Clear 141, Estimated GFR 120, Est GFR ( Amer) 146, Glucose 117 H, Calcium 8.5, Total Bilirubin 0.6, AST 84 H D, ALT 116 H, Alkaline Phosphatase 173 H, Troponin I 0.16 H, Total Protein 8.4 H, Albumin 4.6, Globulin 3.8 H, Albumin/Globulin Ratio 1.2 02/28/22 05:45: WBC 5.1, RBC 5.34, Hgb 15.5, Hct 46.3, MCV 86.6, MCH 29.0, MCHC 33.5, RDW 13.8, Plt Count 255, MPV 9.7, Neut % (Auto) 73.0, Lymph % (Auto) 13.6, [place] % (Auto) 11.8 H, Eos % (Auto) 0.5, Baso % (Auto) 1.1, Neut # (Auto) 3.7, Lymph # (Auto) 0.7, [place] # (Auto) 0.6, Eos # (Auto) 0.0, Baso # (Auto) 0.1 02/28/22 05:45: Sodium 128 L, Potassium 3.1 L, Chloride 91 L, Carbon Dioxide 26, Anion Gap 14.1, BUN 19 D, Creatinine 0.60 L, Estimated Creat Clear 163, Estimated GFR 144, Est GFR ( Amer) 174, Glucose 102 H, Calcium 8.2 L, Total Bilirubin 0.5, AST 65 H, ALT 95 H, Alkaline Phosphatase 160 H, Total Protein 7.9, Albumin 4.3, Globulin 3.6 H, Albumin/Globulin Ratio 1.2 I & O for Last 24 hours: Intake & Output 02/25/22 02/26/22 02/27/22 02/28/22 23:59 23:59 23:59 23:59 Intake Total 1021 / 1021 Output Total 0 / 0 1100 / 1100 200 / 200 Balance 0 / 0 -79 / -79 -200 / -200 Weight 170 lb 169 lb 12.095 oz 168 lb 14.4 oz Constitutional Constitutional: no acute distress *Routine Respiratory Exam Respiratory: Present CTA bilaterally and symmetric chest movement *Routine Cardiovascular Exam Cardiovascular: Present RRR, Normal S1 and Normal S2 *Routine Abdominal Exam Abdominal: Present soft and normoactive bowel sounds; Absent tenderness *Routine Extremities Exam Extremities: Present full ROM and normal capillary refill; Absent edema *Routine Skin Exam Skin: Present intact, dry and warm Detailed Neck Exam: Thyroids Thyroid: Absent bruit Progress Note: A&P Assessment and plan (1) NSTEMI (non-ST elevated myocardial infarction): Status: Acute (2) Influenza: Status: Acute (3) Transaminitis: Status: Acute (4) Hypertension: Status: Acute (5) Pulmonary embolism: Status: Acute Assessment and Plan Assessment and Plan for All Diagnoses:: Elevated troponin/acute myocardial injury -In the presence of acute illness patient has influenza with nausea vomiting and hypertension -Serial troponins 0.05 trending to 0.10 -EKG negative for acute ischemic changes -Recommend outpatient stress test for further evaluation -Preliminary echo shows an estimated EF of 50, official read pending 02/28/2022: Official echo report pending. Influenza -Defer to primary service Hypertension -Uncontrolled.? Systolic 150s to 200 -Continue irbesartan 300 mg p.o. daily and hydrochlorothiazide 12.5 mg daily.? Continue to monitor 07/2022: Patient developed hypertensive emergency yesterday and was started on Cardene drip. Throughout the evening was weaned from it. Blood pressure c
--- NOTE | 2022-02-28 14:26 | EXP.DC.SUM ---
General Admission date:: 02/26/22 Discharge date: 02/28/22 HPI HPI HPI: Mr. Dela Cruz is a 46-year-old male with a past medical history of PE, was on anticoagulation, reports took 5 months and stopped, HTN and Chronic Tobacco Use. He presents to [facility] through the ER due to an acute onset of nausea, vomiting, back pain, chest pain and shortness of air that came on all the sudden the night prior to presentation. He denies known similar sick contacts and denies the use of otc medications for his symptoms. In the ER, Troponin was elevated at 0.05, EKG showed NSR with PVC's, rate 63, no ST segment elevation or depression. Flu testing was positive, AST and ALT were elevated at 120 and 140 with normal bilirubin. Lipase was normal at 39. WBC was decreased at 4.1. CTA of the chest showed no definite PE with some lung nodules concerning for infectious or inflammatory etiology, CT of the abdomen and pelvis showed no acute intra abdominal abnormalities. The patient was admitted with initial impression: NSTEMI, Influenza and Transaminitis. Cardiology will be consulted to see the patient. The patient will be given Tamiflu, Antiemetics, iv fluids. FLP will be checked in the am. The plan of care was discussed with the patient and at bedside. Both verbalized understanding and agreement with the plan of care. Hospital Course Hospital Course Hospital Course: Patient was admitted for influenza and positive troponins. ., Chest pain back pain nausea vomiting. PVCs on telemetry. Initiated on Tamiflu. Cardiology consulted, TTE showed ejection fraction 50. Patient became hypertensive 220 with headache, treated for hypertensive emergency with nicardipine. Blood pressure decreased to 150. Nicardipine discontinued. Patient started on Procardia in addition to other antihypertensives and blood pressure within normal limits. Discharged with cardiology follow-up. Of note patient is active nasal heroin user, trying to eat clean, inquiring about methadone due to allergy to Suboxone. Exam Data for Last 24 hours Vital signs and Labs for Last 24 Hours: Temp Pulse Resp BP Pulse Ox 98.5 F 78 16 115/68 93 L 02/28/22 08:00 02/28/22 12:00 02/28/22 12:00 02/28/22 12:00 02/28/22 12:00 Laboratory Results - last 24 hr 02/27/22 17:53: Sodium 130 L, Potassium 3.3 L D, Chloride 89 L, Carbon Dioxide 28, Anion Gap 16.3 H, BUN 15, Creatinine 0.70, Estimated Creat Clear 141, Estimated GFR 120, Est GFR ( Amer) 146, Glucose 117 H, Calcium 8.5, Total Bilirubin 0.6, AST 84 H D, ALT 116 H, Alkaline Phosphatase 173 H, Troponin I 0.16 H, Total Protein 8.4 H, Albumin 4.6, Globulin 3.8 H, Albumin/Globulin Ratio 1.2 02/28/22 05:45: WBC 5.1, RBC 5.34, Hgb 15.5, Hct 46.3, MCV 86.6, MCH 29.0, MCHC 33.5, RDW 13.8, Plt Count 255, MPV 9.7, Neut % (Auto) 73.0, Lymph % (Auto) 13.6, [place] % (Auto) 11.8 H, Eos % (Auto) 0.5, Baso % (Auto) 1.1, Neut # (Auto) 3.7, Lymph # (Auto) 0.7, [place] # (Auto) 0.6, Eos # (Auto) 0.0, Baso # (Auto) 0.1 02/28/22 05:45: Sodium 128 L, Potassium 3.1 L, Chloride 91 L, Carbon Dioxide 26, Anion Gap 14.1, BUN 19 D, Creatinine 0.60 L, Estimated Creat Clear 163, Estimated GFR 144, Est GFR ( Amer) 174, Glucose 102 H, Calcium 8.2 L, Total Bilirubin 0.5, AST 65 H, ALT 95 H, Alkaline Phosphatase 160 H, Total Protein 7.9, Albumin 4.3, Globulin 3.6 H, Albumin/Globulin Ratio 1.2 I & O for Last 24 hours: Intake & Output 02/25/22 02/26/22 02/27/22 02/28/22 23:59 23:59 23:59 23:59 Intake Total 1021 / 1021 Output Total 0 / 0 1100 / 1100 200 / 200 Balance 0 / 0 -79 / -79 -200 / -200 Weight 77.111 kg 77 kg 76.612 kg Constitutional Constitutional: no acute distress and cooperative *Routine HEENT Exam Head: Present normocephalic Eye: Present EOMI ENT: Present mucous membranes moist *Routine Neck Exam Neck: Present supple and JVD Routine Chest/Breast/Axilla Exam Chest wall: Present tenderness *Routine Respirato
--- NOTE | 2022-02-28 14:53 | PC.NURSE ---
contacted provider about xarelto being D/C, Hakeem Crowell stated that he had completed his treatment on xarelto and didn't need it anymore
--- NOTE | 2022-03-04 14:36 | CARE MANAGER ---
Attempted post-discharge phone interview, no answer.
[2022-03-05 23:20] LABS: Hep A Ab, IgM NEGATIVE; Hepatitis B Core Antibody IgM NEGATIVE; Hepatitis B Surface Antigen NEGATIVE; Hepatitis C Antibody <0.1
== END 2022-02-28 15:05 | disposition home or self-care (01) | DRG 193 ==
LOC: ER 18:40 → ICU 20:33 → 2ND 02-27 16:48
PROVIDERS: Nurse Practitioner Family; Admitting Provider Student in an Organized Health Care Education/Training Program; Emergency Provider Emergency Medicine; PCP Pediatrics; Visit Provider Student in an Organized Health Care Education/Training Program
DX: J11.00 Influenza due to unidentified influenza virus with unspecified type of pneumonia (principal); I21.4 Non-ST elevation (NSTEMI) myocardial infarction; I16.1 Hypertensive emergency; G80.1 Spastic diplegic cerebral palsy; F17.210 Nicotine dependence, cigarettes, uncomplicated; Z86.711 Personal history of pulmonary embolism; I10 Essential (primary) hypertension; R74.01 Elevation of levels of liver transaminase levels; E78.5 Hyperlipidemia, unspecified
CPT/HCPCS: 36415; 71275; 74177; 80053; 80061; 80074; 80329; 81001; 83605; 83690; 84484; 85025; 85651; 86140; 93005; 93306; 99285; C9803; J2405; Q9967; U0003; U0005